=== PATIENT | female | born 1960 | race Caucasian/White ===

== ENCOUNTER → 2016-09-23 | Outpatient (CLI) | payer OTHER ==
--- NOTE | 2016-09-23 16:00 | XR ---
EXAMINATION TYPE: XR finger LT DATE OF EXAM: 09/23/2016 CLINICAL HISTORY: pain TECHNIQUE: 3 views of the left second digit are submitted. COMPARISON: None FINDINGS: No displaced fracture is seen with certainty. Joint spaces are well-preserved. Correlate for soft tissue injury. IMPRESSION: No acute displaced fracture or dislocation.
== END ==
LOC: RADXRMAIN 15:19
PROVIDERS: ATTEND Family Medicine
DX: S66.912A Strain of unspecified muscle, fascia and tendon at wrist and hand level, left hand, initial encounter (principal)

== ENCOUNTER → 2016-10-19 | Outpatient (CLI) | payer OTHER ==
--- NOTE | 2016-10-19 14:50 | MM ---
Reason for exam: clinical finding. Last mammogram was performed 1 year and 8 months ago. History: Benign US right guided VAD of the right breast, April 28, 2010. Took hormonal contraceptives for 4 years beginning at age 25. Physical Findings: Nurse did not find any significant physical abnormalities on exam. MG Diagnostic Mammo w CAD [facility] Bilateral CC and MLO view(s) were taken. Prior study comparison: February 12, 2015, bilateral MG 3d diag mammo w/cad H[facility]IS. April 13, 2010, CAD bilateral diagnostic mammogram. The breast tissue is heterogeneously dense. This may lower the sensitivity of mammography. There is no discrete abnormality including area of concern. No significant new findings when compared with previous films. These results were verbally communicated with the patient and result sheet given to the patient on 10/19/16. ASSESSMENT: Incomplete: need additional imaging evaluation, BI-RAD 0 RECOMMENDATION: Ultrasound of the right breast. Manage patient on a clinical basis.
--- NOTE | 2016-10-19 14:51 | USB ---
Reason for exam: clinical finding. History: Benign US right guided VAD of the right breast, April 28, 2010. Took hormonal contraceptives for 4 years beginning at age 25. US Breast RT Right breast ultrasound includes all four quadrants, the retroareolar region and axilla. Finding demonstrates area of pain negative. These results were verbally communicated with the patient and result sheet given to the patient on 10/19/16. ASSESSMENT: Negative, BI-RAD 1 RECOMMENDATION: Routine screening mammogram of both breasts in 1 year. Manage patient on a clinical basis.
== END | disposition home or self-care (01) ==
LOC: RADMAMWWP 13:38
PROVIDERS: ATTEND Family Medicine
DX: N64.4 Mastodynia (principal); R92.2 Inconclusive mammogram; R92.8 Other abnormal and inconclusive findings on diagnostic imaging of breast
CPT/HCPCS: 76641; G0204

== ENCOUNTER → 2017-04-28 | Outpatient (CLI) | payer OTHER ==
--- NOTE | 2017-04-28 13:50 | XR ---
EXAMINATION TYPE: XR knee complete LT DATE OF EXAM: 04/28/2017 CLINICAL HISTORY: Posterior left knee pain with no known injury TECHNIQUE: Three views of the left knee are obtained. COMPARISON: None. FINDINGS: There is no acute fracture/dislocation evident in left knee. Mild medial compartment joint space narrowing and tibial plateau sclerosis are noted. The overlying soft tissue appears unremarka ble. IMPRESSION: 1. No acute fracture or dislocation in the left knee. 2. Mild medial compartment arthrosis. MR could be performed for further evaluation of the ligaments, tendons, and menisci.
== END | disposition home or self-care (01) ==
LOC: RADXRMAIN 12:28
PROVIDERS: ATTEND Family Medicine
DX: M17.12 Unilateral primary osteoarthritis, left knee (principal)

== ENCOUNTER → 2017-05-01 | Outpatient (CLI) | payer OTHER ==
--- NOTE | 2017-05-02 07:41 | US ---
EXAMINATION TYPE: US venous doppler duplex LE LT DATE OF EXAM: 05/01/2017 6:10 PM COMPARISON: NONE CLINICAL HISTORY: M79.605 Left Leg Pain. Left leg pain SIDE PERFORMED: Left TECHNIQUE: The lower extremity deep venous system is examined utilizing real time linear array sonog ingrid with graded compression, doppler sonography and color-flow sonography. VESSELS IMAGED: External Iliac Vein (EIV) Common Femoral Vein Deep Femoral Vein Greater Saphenous Vein * Femoral Vein Popliteal Vein Small Saphenous Vein * Proximal Calf Veins (* superficial vessels) Grayscale, color doppler, spectral doppler imaging performed of the deep veins of the lower extremity . There is normal flow, compressibility, vascular waveforms. Left Leg: Negative for DVT IMPRESSION: No evidence of DVT left leg.
== END | disposition home or self-care (01) ==
LOC: RADUSMAIN 17:45
PROVIDERS: ATTEND Family Medicine
DX: M79.605 Pain in left leg (principal)

== ENCOUNTER → 2017-05-25 | Outpatient (CLI) | payer OTHER ==
--- NOTE | 2017-05-25 12:26 | MR ---
EXAMINATION TYPE: MR tib fib LT wo con DATE OF EXAM: 05/25/2017 COMPARISON: NONE HISTORY: Pain in left medial calf TECHNIQUE: Multiplanar, multisequence images of the left lower extremity were acquired per department protocol FINDINGS: There is no evidence of acute fracture or malalignment of the tibia or fibula. No evidence of bone ma rrow edema or cortical thickening. No periosteal reaction is seen. There is a very minimal amount of subcutaneous edema seen within the medial lateral distal lower extremity surrounding the distal diaph ysis of the tibia. Muscle volume and signal are all within normal limits. Popliteal flow void is maintained. Ankle morti se and knee joint are aligned. No evidence of stress fracture of the tibia. IMPRESSION: 1. No MR finding to correspond to the patient's pain. There is no evidence of stress fracture, muscul ar tear, or muscular edema. No bone marrow altering suspicious lesion. 2. Very mild amount of subcutaneous edema within the lateral and medial distal left lower extremity s tranding the distal tibial diaphysis.
== END | disposition home or self-care (01) ==
LOC: RADMRIMAIN 06:52
PROVIDERS: ATTEND Family Medicine
DX: R60.0 Localized edema (principal)

== ENCOUNTER → 2018-05-10 | Outpatient (CLI) | payer OTHER ==
--- NOTE | 2018-05-10 08:34 | CT ---
EXAMINATION TYPE: CT sinus wo con DATE OF EXAM: 05/10/2018 COMPARISON: NONE HISTORY: Chronic sinusitis CT DLP: 646 mGycm. Automated Exposure Control for Dose Reduction was Utilized. TECHNIQUE: CT scan of the sinuses is performed without contrast, axial images are obtained, coronal r eformatted images are also reviewed. FINDINGS: There is scant mucosal thickening within the bilateral maxillary sinuses. Right-sided nonoc clusive contra bullosa seen of the middle meatus. Ostiomeatal complexes are patent. There is a small left-sided nonocclusive Black cell measuring 5 mm. Mild right inferior nasal turbinate and middle na roland turbinate mucosal hypertrophy is seen. There is mild leftward nasal septal deviation and a small 2 mm leftward nasal septal spur. Ethmoid, sphenoid, and frontal sinuses remain well aerated. Visualiz ed portions of the anterior margins of the mastoid air cells are also well aerated. Incidentally noted dermal calcifications are seen. The orbits are symmetric and globes maintain a nor mal rounded morphology. Exam is optimized for evaluation of intracranial structures. IMPRESSION: 1. Scant mucosal thickening of the maxillary sinuses. Ostiomeatal complexes are patent. 2. Nonocclusive right middle nasal turbinate stoney bullosa. 3. Small left nonocclusive Black cell. 4. Mild right middle nasal turbinate and inferior nasal turbinate mucosal hypertrophy. 5. Mild leftward nasal septal deviation and small 2 mm leftward nasal septal spur.
--- NOTE | 2018-05-10 08:37 | CT ---
EXAMINATION TYPE: CT brain wo con DATE OF EXAM: 05/10/2018 COMPARISON: NONE HISTORY: Chronic sinusitis, right facial pain, sinus pressure, headaches. CT DLP: 1036 mGycm. Automated Exposure Control for Dose Reduction was Utilized. TECHNIQUE: CT scan of the head is performed without contrast. FINDINGS: There is no acute intracranial hemorrhage, mass effect, or midline shift identified. No suspicious extra-axial fluid collection is seen. The ventricles and sulci are symmetrically prominent compatible with mild age-related volume loss. The globes are intact. Inferior maxillary sinuses seen on the sinus CT of the same date are not visualized. The visualized portions of the paranasal sinuse s are well aerated on brain examination. Cerebellar tonsils are noted to be low-lying. Benign-appeari ng dermal calcifications are incidentally noted in the frontal region. Mastoid air cells are well aer ated. IMPRESSION: No acute intracranial process. Mild age-related volume loss.
== END | disposition home or self-care (01) ==
LOC: RADCTMAIN 07:42
PROVIDERS: ATTEND Ophthalmology
DX: J34.3 Hypertrophy of nasal turbinates (principal); J34.2 Deviated nasal septum; G31.9 Degenerative disease of nervous system, unspecified
CPT/HCPCS: 70450; 70486

== ENCOUNTER 2018-07-09 08:21 | Emergency (ER) | payer OTHER ==
[2018-07-09 08:28] VITALS: RESP 18
[2018-07-09] MEDS ORDERED: diphenhydrAMINE 50 MG/ML 1 ML VIAL IVP STA (08:43)
[2018-07-09] MEDS ORDERED: FAMOTIDINE 20 MG/2 ML VIAL IV STA (08:44)
--- NOTE | 2018-07-09 08:46 | ED ---
General Adult HPI - General Chief complaint: Nausea/Vomiting/Diarrhea Stated complaint: hives/vomiting Time Seen by Provider: 07/09/18 08:30 Source: patient Mode of arrival: ambulatory Limitations: no limitations - History of Present Illness Initial comments: Dictation was produced using [employer] dictation software. please excuse any gra mmatical, word or spelling errors. Chief Complaint: 57-year-old female with chief complaint of rash and nausea vomiting. History of Present Illness: She is a 57-year-old female. She was recently started on Bactrim for chronic sinusitis. 4 days ago patient noted that she's been having intermittent urticarial rash. At same time that her rash started she's been also having nausea and vomiting and poor by mouth tolerance. Patient states her symptoms have been intermittent. She also had a recent increase in her lisinopril hydrochlorothiazide. Patient states that the itching has been so bad that she is having difficulty sleeping at night. The ROS documented in this emergency department record has been reviewed and confirmed by me. Those systems with pertinent positive or negative responses have been documented in the HPI. All other systems are other negative and/or noncontributory. PHYSICAL EXAM: General Impression: Alert and oriented x3, not in acute distress HEENT: Normocephalic atraumatic, extra-ocular movements intact, pupils equal and reactive to light bilaterally, mucous membranes moist. Cardiovascular: Heart regular rate and rhythm, S1&S2 audible, no murmurs, rubs or gallops Chest: Lungs clear to auscultation bilaterally, no rhonchi, no wheeze, no rales Abdomen: Bowel sounds present, abdomen soft, non-tender, non-distended, no organomegaly Musculoskeletal: Pulses present and equal in all extremities, no peripheral edema Motor: no focal deficits noted Neurological: CN II-XII grossly intact, no focal motor or sensory deficits noted Skin: Urticarial rash to the upper extremities, neck and anterior chest Psych: Normal affect and mood ED course: 57-year-old female with ALLERGIC reaction. There is strong clinical suspicion that symptoms are secondary to Bactrim. Vital signs upon arrival shows heart rate of 105, rest of vital signs within acceptable limits. Patient given Benadryl and Pepcid. Laboratory evaluation obtained. Laboratory evaluation obtained showing no acute processes. Patient's symptoms are improved. Patient told to discontinue taking Bactrim. She is told to follow-up with ear nose and throat doctor. Patient was Zofran for some dizziness. Patient otherwise well-appearing at this time. Patient given prescription for Antivert when necessary dizziness. Otherwise well-appearing at this time tolerating by mouth. No concern for anaphylaxis at this time. Patient told to follow-up with their nose and throat doctor for outpatient management of chronic sinusitis which she is taking Bactrim for. - Related Data Home Medications Medication Instructions Recorded Confirmed Lisinopril-Hctz 20-25 mg 1 tab PO DAILY 07/09/18 07/09/18 [Zestoretic 20-25] Omeprazole 20 mg PO DAILY 07/09/18 07/09/18 Vitamin C/Biotin [Hair, Skin and 1 tab PO DAILY 07/09/18 07/09/18 Nails] Previous Rx's Medication Instructions Recorded Meclizine [Antivert] 25 mg PO BID PRN #12 tab 07/09/18 Allergies Allergy/AdvReac Type Severity Reaction Status Date / Time sulfamethoxazole Allergy Rash/Hives Verified 07/09/18 08:48 [From Bactrim] trimethoprim [From Bactrim] Allergy Rash/Hives Verified 07/09/18 08:48 Review of Systems ROS Statement: Those systems with pertinent positive or pertinent negative responses have been documented in the HPI. ROS Other: All systems not noted in ROS Statement are negative. Past Medical History Past Medical History: Hypertension History of Any Multi-Drug Resistant Organisms: None Reported Past Surgical History: Section Past Psychological History: No Psychological Hx Reported Smoking Status: Never smoker Past Alcohol Use History: None Reported Past Drug Use History: None Reported General Exam Limitations: no limitations Course Vital Signs 07/09/18 08:25 Temperature 97.4 F L Pulse Rate 105 H Respiratory 18 Rate Blood Pressure 131/88 O2 Sat by Pulse 99 Oximetry Medical Decision Making - Lab Data Result diagrams: 07/09/18 08:48 07/09/18 08:48 Lab Results 07/09/18 07/09/18 Range/Units 08:48 08:48 WBC 5.1 (3.8-10.6) k/uL RBC 4.89 (3.80-5.40) m/uL Hgb 14.9 (11.4-16.0) gm/dL Hct 42.7 (34.0-46.0) % MCV 87.5 (80.0-100.0) fL MCH 30.5 (25.0-35.0) pg MCHC 34.9 (31.0-37.0) g/dL RDW 13.5 (11.5-15.5) % Plt Count 342 (150-450) k/uL Neutrophils % 66 % Lymphocytes % 19 % Monocytes % 10 % Eosinophils % 1 % Basophils % 0 % Neutrophils # 3.4 (1.3-7.7) k/uL Lymphocytes # 1.0 (1.0-4.8) k/uL Monocytes # 0.5 (0-1.0) k/uL Eosinophils # 0.0 (0-0.7) k/uL Basophils # 0.0 (0-0.2) k/uL Sodium 138 (137-145) mmol/L Potassium 3.9 (3.5-5.1) mmol/L Chloride 102 (98-107) mmol/L Carbon Dioxide 23 (22-30) mmol/L Anion Gap 13 mmol/L BUN 14 (7-17) mg/dL Creatinine 0.70 (0.52-1.04) mg/dL Est GFR (CKD-EPI)AfAm >90 (>60 ml/min/1.73 sqM) Est GFR (CKD-EPI)NonAf >90 (>60 ml/min/1.73 sqM) Glucose 130 H (74-99) mg/dL Calcium 9.8 (8.4-10.2) mg/dL Disposition Clinical Impression: Allergic reaction Disposition: HOME SELF-CARE Instructions (If sedation given, give patient instructions): Urticaria (ED) Prescriptions: Meclizine [Antivert] 25 mg PO BID PRN #12 tab PRN Reason: dizziness Is patient prescribed a controlled substance at d/c from ED?: No Referrals: Rafat Eric DO [Primary Care Provider] - 1-2 days Time of Disposition: 09:51
[2018-07-09 09:03] LABS: Basophils % (A) 0 %; Eosinophils % (A) 1 %; HCT 42.7 % (34.0-46.0); HGB 14.9 gm/dL (11.4-16.0); Lymphocytes % (A) 19 %; MCH 30.5 pg (25.0-35.0); MCHC 34.9 g/dL (31.0-37.0); MCV 87.5 fL (80.0-100.0); Mean Platelet Volume 6.7; Monocytes # (A) 0.5 k/uL (0-1.0); Monocytes % (A) 10 %; Neutrophils # (A) 3.4 k/uL (1.3-7.7); Neutrophils % (A) 66 %; Platelet Count 342 k/uL (150-450); RBC 4.89 m/uL (3.80-5.40); RDW 13.5 % (11.5-15.5); WBC 5.1 k/uL (3.8-10.6)
[2018-07-09 09:04] LABS: Anion Gap 13 mmol/L; Blood Urea Nitrogen 14 mg/dL (7-17); Calcium 9.8 mg/dL (8.4-10.2); Carbon Dioxide 23 mmol/L (22-30); Chloride 102 mmol/L (98-107); Glucose 130 mg/dL (74-99); Potassium 3.9 mmol/L (3.5-5.1); Sodium 138 mmol/L (137-145)
[2018-07-09] MEDS ORDERED: ONDANSETRON 4 MG/2 ML VIAL IVP STA (09:06)
[2018-07-09] MEDS ORDERED: SODIUM CHLORIDE 0.9% 1,000 ML IV ONE (09:06)
[2018-07-09 10:10] VITALS: BP 128/82; PULSE 77; TEMP 98.2
== END 2018-07-09 10:10 | disposition home or self-care (01) ==
LOC: EC 08:21
DX: T78.40XA Allergy, unspecified, initial encounter (principal); I10 Essential (primary) hypertension; Z79.899 Other long term (current) drug therapy; Z88.1 Allergy status to other antibiotic agents; Z88.2 Allergy status to sulfonamides
CPT/HCPCS: 36415; 80048; 85025; 99284; 96374; 96375 ×2; 96361; J1200; J2405

== ENCOUNTER 2018-07-09 14:30 | Emergency (ER) | payer OTHER ==
[2018-07-09 14:36] VITALS: RESP 18; TEMP 98
[2018-07-09] MEDS ORDERED: diphenhydrAMINE 50 MG/ML 1 ML VIAL IVP STA (15:08)
[2018-07-09] MEDS ORDERED: FAMOTIDINE 20 MG/2 ML VIAL IV STA (15:08)
[2018-07-09] MEDS ORDERED: methylPREDNISolone SOD SUCCI 125 MG/2 ML VIAL IV STA (15:09)
--- NOTE | 2018-07-09 15:32 | ED ---
General Adult HPI - General Chief complaint: Allergic Reaction Stated complaint: Hives, Nauseated Time Seen by Provider: 07/09/18 14:37 Source: patient, RN notes reviewed, old records reviewed Mode of arrival: ambulatory Limitations: no limitations - History of Present Illness Initial comments: 57-year-old female patient past medical history of a central presents to ED with rash. Patient was previously seen for this problem at approximately 8:00 this morning. At that time patient was diagnosed with alikely causing her to drug reaction. Patient was previously on Bactrim approximately 4 days due to a sinus infection. Patient primary complaint today is hives on her back and forearms. Patient denies any facial swelling, sensation of throat closing, difficulty breathing. Patient denies any abdominal pain, or diarrhea. Pt has been experiencing some waxing and waning nausea and vomiting for the last 4 days. Patient states that she primarily wants her rash to be treated as an is pruritic and uncomfortable. Denies any other complaints. Systemic: Pt denies fatigue, myalgia, fever/chills. Pt denies weakness, night sweats, weight loss. Neuro: Pt denies headache, visual disturbances, syncope or pre-syncope. HEENT: Pt denies ocular discharge or irritation, otalgia, rhinorrhea, pharyngitis or notable lymphadenopathy. Cardiopulmonary: Pt denies chest pain, SOB, heart palpitations, dyspnea on exertion. Abdominal/GI: Pt denies abdominal pain, n/v/d. : Pt denies dysuria, burning w/ urination, frequency/urgency. Denies new onset urinary or bowel incontinence. MSK: Pt denies myalgia, loss of strength or function in extremities. Neuro: Pt denies new onset weakness, paresthesias. - Related Data Home Medications Medication Instructions Recorded Confirmed Lisinopril-Hctz 20-25 mg 1 tab PO DAILY 07/09/18 07/09/18 [Zestoretic 20-25] Omeprazole 20 mg PO DAILY 07/09/18 07/09/18 Vitamin C/Biotin [Hair, Skin and 1 tab PO DAILY 07/09/18 07/09/18 Nails] Previous Rx's Medication Instructions Recorded EPINEPHrine [Epipen 2-Joseph] 0.3 mg IM ONCE PRN #1 pack 07/09/18 Meclizine [Antivert] 25 mg PO BID PRN #12 tab 07/09/18 Ondansetron Odt [Zofran ODT] 4 mg PO Q8HR PRN #20 tab 07/09/18 diphenhydrAMINE [Benadryl] 1 - 2 tab PO Q6HR PRN #30 capsule 07/09/18 predniSONE 50 mg PO DAILY #4 tab 07/09/18 Allergies Allergy/AdvReac Type Severity Reaction Status Date / Time sulfamethoxazole Allergy Rash/Hives Verified 07/09/18 14:36 [From Bactrim] trimethoprim [From Bactrim] Allergy Rash/Hives Verified 07/09/18 14:36 Review of Systems ROS Statement: Those systems with pertinent positive or pertinent negative responses have been documented in the HPI. ROS Other: All systems not noted in ROS Statement are negative. Past Medical History Past Medical History: Hypertension History of Any Multi-Drug Resistant Organisms: None Reported Past Surgical History: Section Past Psychological History: No Psychological Hx Reported Smoking Status: Never smoker Past Alcohol Use History: None Reported Past Drug Use History: None Reported General Exam - General Exam Comments Initial Comments: Constitutional: NAD, AOX3, Pt has pleasant affect. HEENT: NC/AT, trachea midline, neck supple, no lymphadenopathy. Posterior pharynx non erythematous, without exudates. External ears appear normal, without discharge. Mucous membranes moist. Eyes PERRLA, EOM intact. There is no scleral icterus. No pallor noted. Cardiopulmonary: RRR, no murmurs, rubs or gallops, no JVD noted. Lungs CTAB in anterior and posterior camacho. No peripheral edema. Abdominal exam: Abdomen soft and non-distended. Abdomen non-tender to palpation in all 4 quadrants. Bowel sounds active in LLQ. No hepatosplenomegaly. No ecchymosis Neuro: CN II-XII grossly intact. No nuchal rigidity. MSK: No posterior calf tenderness bilaterally, homans sign negative bilaterally. Posterior tibialis and radial pulse +2 bilaterally. Sensation intact in upper and lower extremities. Full active ROM in upper and lower extremities, 5/5 stregnth. Derm: Hives noted on back as well as upper extremities bilaterally. No angioedema. Limitations: no limitations Course Vital Signs 07/09/18 14:34 Temperature 98.0 F Pulse Rate 86 Respiratory 18 Rate Blood Pressure 132/85 O2 Sat by Pulse 99 Oximetry Medical Decision Making - Medical Decision Making 57-year-old female patient past medical history of a central presents to ED with rash. Patient was previously seen for this problem at approximately 8:00 this morning. At that time patient was diagnosed with a-likely causing her to drug reaction. Patient was previously on Bactrim approximately 4 days due to a sinus infection. Patient primary complaint today is hives on her back and forearms. Patient denies any facial swelling, sensation of throat closing, difficulty breathing. Patient denies any abdominal pain, vomiting or diarrhea. Patient states that she primarily wants her rash to be treated as an is pruritic and uncomfortable. Denies any other complaints. Pt VSS, afebrile. Physical exam displayed: Hives noted on back as well as upper extremities bilaterally. No an gioedema. Patient lives. Steroids, Benadryl and ED. Hives improved. Patient developed some nausea and retching. Patient denies raising this for approximately 5 days waxing and waning. Patient was administered some Zofran. Patient discharged with prescription of steroids, Benadryl, Zofran. Patient also prescribed EpiPen to use in emergency for anaphylaxis. Patient will follow up with primary care Brown 2 days. Patient return to ER condition worsens in any way. Case discussed with Dr. Macdonald. Disposition Clinical Impression: Allergic reaction Disposition: HOME SELF-CARE Condition: Stable Instructions (If sedation given, give patient instructions): General Allergic Reaction (ED) Additional Instructions: Patient to adhere to previously discussed treatment plan and will take medication(s) as directed. Patient to follow up with PCP in 1-2 days. Patient to return to ED if symptoms do not improve. Please take medications as directed. Use Benadryl as needed for pruritus or rash. Take steroids as directed. Use EpiPen only in case of emergency anaphylaxis. Use Zofran as needed for nausea and vomiting. Prescriptions: diphenhydrAMINE [Benadryl] 1 - 2 tab PO Q6HR PRN #30 capsule PRN Reason: Allergic Reaction EPINEPHrine [Epipen 2-Joseph] 0.3 mg IM ONCE PRN #1 pack PRN Reason: Anaphylaxis predniSONE 50 mg PO DAILY #4 tab Ondansetron Odt [Zofran ODT] 4 mg PO Q8HR PRN #20 tab PRN Reason: Nausea Is patient prescribed a controlled substance at d/c from ED?: No Referrals: Rafat Eric DO [Primary Care Provider] - 1-2 days
[2018-07-09] MEDS ORDERED: ONDANSETRON 4 MG/2 ML VIAL IVP STA (15:33)
[2018-07-09 16:23] VITALS: BP 137/87; PULSE 70
== END 2018-07-09 16:30 | disposition home or self-care (01) ==
LOC: EC 14:30
DX: T78.40XA Allergy, unspecified, initial encounter (principal); I10 Essential (primary) hypertension; Z79.899 Other long term (current) drug therapy; Z88.1 Allergy status to other antibiotic agents; Z88.2 Allergy status to sulfonamides; Z53.8 Procedure and treatment not carried out for other reasons
CPT/HCPCS: 99283; 96374; 96375 ×2; J1200; J2930; J2405

== ENCOUNTER 2018-11-14 08:50 | Day surgery (SDC) | payer OTHER ==
[~2018-11-14 08:50] MED LIST: LIDOCAINE 1% 20 ML VIAL (10MG/ML) FOR IV START INTRADERMA PRN
[2018-11-14 09:10] VITALS: TEMP 97.2
[2018-11-14] MEDS: LACTATED RINGERS 1,000 ML IV SCH ×2 (09:14→09:28)
--- NOTE | 2018-11-14 09:14 | P.GSHP ---
History of Present Illness H&P Date: 11/14/18 CHIEF COMPLAINT: GERD HISTORY OF PRESENT ILLNESS: The patient is a 57-year-old female who presents reports gastroesophageal reflux disease. Upper endoscopy was offered for further evaluation and management. PAST MEDICAL HISTORY: Please see list. PAST SURGICAL HISTORY: Please see list. MEDICATIONS: Please see list. ALLERGIES: Please see list. SOCIAL HISTORY: No illicit drug use FAMILY HISTORY: No reports of Crohn disease or ulcerative colitis. REVIEW OF ORGAN SYSTEMS: CONSTITUTIONAL: No reports of fevers or chills. GI: Denies any blood in stools or constipation. PHYSICAL EXAM: VITAL SIGNS: Stable GENERAL: Well-developed and pleasant in no acute distress. HEENT: No scleral icterus. Extraocular movements grossly intact. Moist buccal mucosa. NECK: Supple without lymphadenopathy. CHEST: Unlabored respirations. Equal bilateral excursions. CARDIOVASCULAR: Regular rate and rhythm. Distal 2+ pulses. ABDOMEN: Soft, nondistended. MUSCULOSKELETAL: No clubbing, cyanosis, or edema. ASSESSMENT: 1. Gastroesophageal reflux disease PLAN: 1. Recommend proceeding with an upper endoscopy Past Medical History Past Medical History: GERD/Reflux, Hypertension Additional Past Medical History / Comment(s): CURRENT: CAN'T HOLD FOOD DOWN. History of Any Multi-Drug Resistant Organisms: None Reported Past Surgical History: Section Past Anesthesia/Blood Transfusion Reactions: Motion Sickness Past Psychological History: No Psychological Hx Reported Smoking Status: Never smoker Past Alcohol Use History: None Reported Past Drug Use History: None Reported Medications and Allergies Home Medications Medication Instructions Recorded Confirmed Type Lisinopril-Hctz 20-25 mg 1 tab PO QAM 07/09/18 11/14/18 History [Zestoretic 20-25] Omeprazole 20 mg PO DAILY 07/09/18 11/14/18 History Allergies Allergy/AdvReac Type Severity Reaction Status Date / Time sulfamethoxazole Allergy Rash/Hives Verified 11/13/18 08:49 [From Bactrim] trimethoprim [From Bactrim] Allergy Rash/Hives Verified 11/13/18 08:49 Surgical - Exam Vital Signs Temp Pulse Resp BP Pulse Ox 97.2 F L 74 16 121/73 94 L 11/14/18 09:07 11/14/18 09:07 11/14/18 09:07 11/14/18 09:07 11/14/18 09:07
[2018-11-14] MEDS ORDERED: PROPOFOL 10 MG/ML 20 ML VIAL IV ONE (09:29)
[2018-11-14] MEDS ORDERED: LIDOCAINE 1% INJ 10MG/ML (20 ML MDV) ONE (09:29)
--- NOTE | 2018-11-14 09:41 | P.PCN ---
Date of Procedure: 11/14/18 Description of Procedure: PREOPERATIVE DIAGNOSIS: Gastroesophageal reflux disease. POSTOPERATIVE DIAGNOSIS: Gastroesophageal reflux disease. Diaphragmatic hiatal hernia OPERATION: Esophagogastroduodenoscopy with biopsies along antrum. SURGEON: Alison Rosas MD ANESTHESIA: MAC. INDICATIONS: The patient is a 46-year-old female who presents with a history of reflux disease. Benefits and risks of the procedure were described. Informed consent was obtained. DESCRIPTION: The patient was brought into the endoscopy suite and laid in the left lateral decubitus position. An Olympus gastroscope was passed along the posterior oropharynx down to the distal esophagus where the squamocolumnar junction was encountered at 36 cm from the incisors. The stomach was entered and no bile reflux was found. Additional findings are listed below. Biopsies with cold forceps were obtained of the antrum. The first through third portion of the duodenum was examined and unremarkable. Retroflexion of the scope confirmed Hill grade 3 lower esophageal valve. The squamocolumnar junction demonstrated LA grade B erosive esophagitis. The stomach was desufflated. The patient tolerated the procedure well. FINDINGS: Squamocolumnar junction 36 cm from the incisors. Diaphragmatic hiatus at 40 cm. Hiatal hernia, 4 cm Hill grade 3 lower esophageal valve. LA grade B erosive esophagitis. No active duodenitis. Chronic gastritis with gastric polyps RECOMMENDATIONS: Upper endoscopy as needed. Plan - Discharge Summary Discharge Rx Participant: No New Discharge Prescriptions: No Action Omeprazole 20 mg PO DAILY Lisinopril-Hctz 20-25 mg [Zestoretic 20-25] 1 tab PO QAM Discharge Medication List Lisinopril-Hctz 20-25 mg [Zestoretic 20-25] 1 tab PO QAM 07/09/18 [History] Omeprazole 20 mg PO DAILY 07/09/18 [History]
--- NOTE | 2018-11-14 09:43 | P.PN ---
Progress Note - Text Progress Note Date: 11/14/18 Patient reports completing fecal test [place]d which was normal.
[2018-11-14 09:48] VITALS: BP 114/75; PULSE 72; RESP 18
== END 2018-11-14 10:10 | disposition home or self-care (01) ==
LOC: ORWHC2ENDO 08:50
PROVIDERS: ATTEND Surgery Plastic and Reconstructive Surgery
DX: K44.9 Diaphragmatic hernia without obstruction or gangrene (principal); K22.10 Ulcer of esophagus without bleeding; K29.50 Unspecified chronic gastritis without bleeding; K31.7 Polyp of stomach and duodenum; K21.9 Gastro-esophageal reflux disease without esophagitis; R10.9 Unspecified abdominal pain; I10 Essential (primary) hypertension; K92.89 Other specified diseases of the digestive system; Z79.899 Other long term (current) drug therapy; Z88.2 Allergy status to sulfonamides
CPT/HCPCS: 43239; 88305

== ENCOUNTER → 2019-04-13 | Outpatient (CLI) | payer BC ==
--- NOTE | 2019-04-13 10:02 | MR ---
EXAMINATION TYPE: MR brain wo/w con DATE OF EXAM: 04/13/2019 9:37 AM COMPARISON: Previous CT scan of the brain dated 05/10/2018. HISTORY: Headache TECHNIQUE: Multiplanar, multiecho imaging of the brain was obtained with and without intravenous adm inistration of 7.5 mL intravenous Gadavist. FINDINGS: Midline structures are unremarkable. There is a normal craniocervical junction. Echoplanar diffusion imaging shows no evidence of restricted diffusion. There are normal vascular flow voids. The orbits are unremarkable. There is no evidence of a CP angle mass lesion. There are scattered, punctate subcortical white matte r lesions in the frontal lobes bilaterally. These number approximately 5 in number. These are nonspec ific and may relate to small vessel disease, migraine headaches, hypertension, borderline is disease. There is no mass effect, midline shift or intracranial blood. Following intravenous administration of gadolinium, I do not see evidence of abnormal enhancement. IMPRESSION: 1. NO ACUTE INTRACRANIAL ABNORMALITY. 2. RARE, PUNCTATE SUBCORTICAL WHITE MATTER LESIONS WHICH ARE NONSPECIFIC. A DIFFERENTIAL DIAGNOSIS GIVEN ABOVE.
== END | disposition home or self-care (01) ==
LOC: RADMRIMAIN 08:40
PROVIDERS: ATTEND Family Medicine
DX: R90.82 White matter disease, unspecified (principal); R51 Headache
CPT/HCPCS: 70553; A9585

== ENCOUNTER 2019-07-01 10:25 | Observation (INO) | payer BC ==
[2019-07-01 11:45] LABS: HCT 40.5 % (34.0-46.0); HGB 14.5 gm/dL (11.4-16.0); MCH 31.1 pg (25.0-35.0); MCHC 35.8 g/dL (31.0-37.0); MCV 87.1 fL (80.0-100.0); Mean Platelet Volume 6.6; Platelet Count 338 k/uL (150-450); RBC 4.65 m/uL (3.80-5.40); RDW 11.9 % (11.5-15.5); WBC 6.5 k/uL (3.8-10.6)
--- NOTE | 2019-07-01 11:49 | XR ---
EXAMINATION TYPE: XR chest 2V DATE OF EXAM: 07/01/2019 COMPARISON: 09/10/2015 HISTORY: Chest pain TECHNIQUE: Frontal and lateral views of the chest are obtained. FINDINGS: There is no focal air space opacity, pleural effusion, or pneumothorax seen. The cardiac silhouette size is within normal limits and stable from the prior. The osseous structures are intac t. IMPRESSION: No acute cardiopulmonary process.
[2019-07-01 12:03] LABS: D-Dimer 0.32 mg/L FEU (<0.60); INR 0.9 (<1.2); Prothrombin Time 9.8 sec (9.0-12.0)
[2019-07-01 12:05] LABS: ALT 12 U/L (4-34); AST 19 U/L (14-36); African American GFR (CKD) >90 (>60 ml/min/1.73 sqM); Albumin 4.6 g/dL (3.5-5.0); Alkaline Phosphatase 77 U/L (38-126); Anion Gap 11 mmol/L; Blood Urea Nitrogen 13 mg/dL (7-17); Calcium 9.5 mg/dL (8.4-10.2); Carbon Dioxide 24 mmol/L (22-30); Chloride 96 mmol/L (98-107); Glucose 128 mg/dL (74-99); Magnesium 2.2 mg/dL (1.6-2.3); Non-African American GFR(CKD) >90 (>60 ml/min/1.73 sqM); Potassium 3.7 mmol/L (3.5-5.1); Sodium 131 mmol/L (137-145); Total Bilirubin 0.4 mg/dL (0.2-1.3); Total Protein 7.8 g/dL (6.3-8.2)
[2019-07-01 12:09] LABS: Eosinophils # (M) 0.07 k/uL (0-0.7); Lymphocytes # (M) 1.69 k/uL (1.0-4.8); Monocytes # (M) 0.59 k/uL (0-1.0); Neutrophils # (M) 4.16 k/uL (1.3-7.7); Neutrophils % (M) 64 %; Nucleated Red Blood Cells 0 /100 WBC (0-0); Total Cells Counted 100
--- NOTE | 2019-07-01 13:10 | ED ---
Chest Pain HPI - General Chief Complaint: Chest Pain Stated Complaint: chest pain/SOB Source: patient Mode of arrival: ambulatory Limitations: physical limitation - History of Present Illness Initial Comments: The patient is a 58-year-old female past medical history of hypertension who presents to the emergency room with reported chest pain. She states it's been intermittent for the past week. It is located over the left side of her chest with radiation to her left jaw and left arm. She describes it as a sharp shooting sensation. Denies any provocative factors. Does admit to mild shortness of breath. Does have a nonproductive cough. Also admits to bilateral ankle cramping. No calf pain or tingling. Denies history of DVT or PE. No pleuritic chest pain. No ripping or tearing sensation to her back. Denies any additional symptoms include fevers, chills, nausea or vomiting. There are no alleviating, precipitating or modifying factors - Related Data Home Medications Medication Instructions Recorded Confirmed Lisinopril-Hctz 20-25 mg 1 tab PO QAM 07/09/18 07/01/19 [Zestoretic 20-25] Omeprazole 20 mg PO DAILY 07/09/18 07/01/19 OXcarbazepine [Trileptal] 150 mg PO BID 07/01/19 07/01/19 Allergies Allergy/AdvReac Type Severity Reaction Status Date / Time sulfamethoxazole Allergy Rash/Hives Verified 07/01/19 13:26 [From Bactrim] trimethoprim [From Bactrim] Allergy Rash/Hives Verified 07/01/19 13:26 Review of Systems ROS Statement: Those systems with pertinent positive or pertinent negative responses have been documented in the HPI. ROS Other: All systems not noted in ROS Statement are negative. EKG Findings - EKG Comments: EKG Findings:: EKG demonstrates normal sinus rhythm with ventricular rate of 71. CT interval 142. QRS 78. QTC of 417. No acute ST segment elevations or depressions concerning for ischemic changes Past Medical History Past Medical History: GERD/Reflux, Hypertension Additional Past Medical History / Comment(s): neck pain History of Any Multi-Drug Resistant Organisms: None Reported Past Surgical History: Section Past Anesthesia/Blood Transfusion Reactions: Motion Sickness Past Psychological History: No Psychological Hx Reported Smoking Status: Never smoker Past Alcohol Use History: None Reported Past Drug Use History: Marijuana - Past Family History Father Family Medical History: Congestive Heart Failure (CHF), Coronary Artery Disease (CAD) Additional Family Medical History / Comment(s): R hip fracture Mother Family Medical History: Coronary Artery Disease (CAD), CVA/TIA, Diabetes Mellitus, Eye Disorder Additional Family Medical History / Comment(s): CABG, macular degeneration General Exam Limitations: physical limitation Course Vital Signs 07/01/19 07/01/19 07/01/19 10:37 11:04 13:45 Temperature 98.5 F 98.3 F Pulse Rate 72 73 72 Respiratory 18 18 12 Rate Blood Pressure 138/84 141/99 162/87 O2 Sat by Pulse 99 96 97 Oximetry 07/01/19 14:04 Temperature Pulse Rate 81 Respiratory 14 Rate Blood Pressure 129/85 O2 Sat by Pulse 92 L Oximetry Chest Pain MDM - MDM Upon arrival the patient's is placed into room 6. A thorough history and physical exam was performed. Peripheral IV was established. Laboratory studies were conducted. Sodium mildly low at 131. Glucose is 128. First troponin is negative. Chest x-ray demonstrates no acute cardiopulmonary process. I did discuss results with the patient. She was given an aspirin. I did recommend hospital admission order to trend her troponins and be evaluated by cardiology. The patient did agree to this. A call discuss the case with Dr. hannah who accepted admission. Patient was then transferred to floor in stable condition Disposition Clinical Impression: Chest pain Disposition: ADMITTED IP TO THIS HOSP Condition: Stable Is patient prescribed a controlled substance at d/c from ED?: No Decision to Admit Reason: Admit from EC Decision Date: 07/01/19 Decision Time: 13:10
[2019-07-01] MEDS ORDERED: NALOXONE 0.4 MG/ML 1 ML VIAL IV PRN (13:11)
[2019-07-01] MEDS ORDERED: ASPIRIN 81 MG PO STA (13:12)
--- NOTE | 2019-07-01 17:09 | P.HPIM ---
History of Present Illness H&P Date: 07/01/19 Chief Complaint: Chest pain History of presenting complaint: This is a very pleasant 58-year-old patient of Dr. Eric. Chronic stable medical conditions include GERD, hypertension, osteoarthritis, hiatal hernia, trigeminal neuralgia on the right side. Patient does not have any prior cardiac history. For the patient's been having chest pressure on and off. Sometimes w ith exertion. The pain often radiates to the left arm or the neck. Often feels a choking sensation. Patient became short of breath and clammy. Also some dizziness and lightheadedness. As his symptoms have been progressive she decided to come in. Admitted with a diagnosis of unstable angina. Initial troponin was negative. Review of systems: GEN.: None EYES: None HEENT: None NECK: None RESPIRATORY: As above CARDIOVASCULAR: As above GASTROINTESTINAL: GERD GENITOURINARY: None MUSCULOSKELETAL: Some joint pains LYMPHATICS: None HEMATOLOGICAL: None PSYCHIATRY: None NEUROLOGICAL: None Past medical history to include: GERD, hypertension, Brigette arthritis, hiatal hernia, right trigeminal neuralgia Social history: , does home care. Does not smoke or drink alcohol. Physical examination: VITAL SIGNS: 98.5, 72, 18, 138/84, 99% on room air GENERAL: BMI 33.3, propped up, not in distress. EYES: Pupils equal. Conjunctiva normal. HEENT: External appearance of nose and ears normal, oral cavity grossly normal. NECK: JVD not raised; masses not palpable. HEART: First and second heart sounds are normal; no edema. LUNGS: Respiratory rate normal; clear to auscultation. ABDOMEN: Soft, nontender, liver spleen not palpable, no masses palpable. PSYCH: Alert and oriented x3; mood and affect normal Musculoskeletal: Some evidence of early OA in the hands. NEUROLOGICAL: Cranial nerves grossly intact; no facial asymmetry, power and sensation grossly intact. LYMPHATICS: No lymph nodes palpable in the axilla and neck INVESTIGATIONS, reviewed in the clinical context: White count 6.5 hemoglobin 14.5 platelets 338 potassium 3.7 creatinine 0.59 Troponin I less than 0.012 EKG tracing personally reviewed by me-normal sinus rhythm film personally reviewed by me-lung camacho clear Assessment: -Anterior chest wall pain and noncardiac sounding presentation with symptoms coming on for progressive over a week, suspect unstable angina, with negative troponin -GERD -Essential hypertension -Primary osteoarthritis -Hiatal hernia -Right trigeminal neuralgia -Obesity BMI 33.3 Plan: Patient at rest is currently chest pain-free. Received aspirin. Home medications be resumed. Add beta ondina. Cardiology is consulted. Care was discussed with the patient. will at least need a stress test in the morning. Past Medical History Past Medical History: GERD/Reflux, Hypertension, Osteoarthritis (OA) Additional Past Medical History / Comment(s): Hiatal hernia, gastric polyp, R trigeminal nerve pain, sinusitis, deviated septum, allergies. History of Any Multi-Drug Resistant Organisms: None Reported Past Surgical History: Section, Uterine Ablation Additional Past Surgical History / Comment(s): EGD, hysteroscopy with myosure/cu rrettage. Past Anesthesia/Blood Transfusion Reactions: No Reported Reaction, Motion Sickness Past Psychological History: No Psychological Hx Reported Additional Psychological History / Comment(s): Pt resides with her spouse. She is independent. She works for [employer]. Smoking Status: Never smoker Past Alcohol Use History: None Reported Past Drug Use History: Marijuana Additional Drug Use History / Comment(s): Occasionally smokes marijuana - Past Family History Father Family Medical History: Congestive Heart Failure (CHF), Coronary Artery Disease (CAD) Additional Family Medical History / Comment(s): R hip fracture Mother Family Medical History: Coronary Artery Disease (CAD), CVA/TIA, Diabetes Susan litus, Eye Disorder Additional Family Medical History / Comment(s): CABG, macular degeneration Medications and Allergies Home Medications Medication Instructions Recorded Confirmed Type Lisinopril-Hctz 20-25 mg 1 tab PO QAM 07/09/18 07/01/19 History [Zestoretic 20-25] Omeprazole 20 mg PO DAILY 07/09/18 07/01/19 History OXcarbazepine [Trileptal] 150 mg PO BID 07/01/19 07/01/19 History Allergies Allergy/AdvReac Type Severity Reaction Status Date / Time sulfamethoxazole Allergy Rash/Hives Verified 07/01/19 13:26 [From Bactrim] trimethoprim [From Bactrim] Allergy Rash/Hives Verified 07/01/19 13:26 Physical Exam Vitals: Vital Signs Temp Pulse Pulse Resp BP BP Pulse Ox 07/01/19 15:21 98.7 F 71 16 132/77 97 07/01/19 14:04 81 14 129/85 92 L 07/01/19 13:45 98.3 F 72 12 162/87 97 07/01/19 11:04 73 18 141/99 96 07/01/19 10:37 98.5 F 72 18 138/84 99 Intake and Output 07/01/19 07/01/19 07/01/19 06:59 14:59 22:59 Other: # Voids 1 Weight 90.718 kg Results CBC & Chem 7: 07/01/19 11:18 07/01/19 11:18 Labs: Abnormal Lab Results - Last 24 Hours (Table) 07/01/19 Range/Units 11:18 Sodium 131 L (137-145) mmol/L Chloride 96 L (98-107) mmol/L Glucose 128 H (74-99) mg/dL Thrombosis Risk Factor Assmnt - Choose All That Apply Any of the Below Risk Factors Present?: Yes Each Factor Represents 1 point: Age 41-60 years, Obesity (BMI >25) Other Risk Factors: No Other congenital or acquired thrombophilia - If yes, enter type in comment: No Thrombosis Risk Factor Assessment Total Risk Factor Score: 2 Thrombosis Risk Factor Assessment Level: Low Risk
[2019-07-01] MEDS: METOPROLOL TARTRATE 25 MG TAB PO SCH (21:03)
[2019-07-01] MEDS: OXcarbazepine 150 MG TAB PO SCH (21:04)
[2019-07-02] MEDS ORDERED: PANTOPRAZOLE 40 MG TABLET PO SCH (07:30)
[2019-07-02 07:55] VITALS: BP 138/85; PULSE 84; RESP 20; TEMP 98.7
[2019-07-02] MEDS ORDERED: LISINOPRIL-HCTZ 20-25 MG 1 EACH TAB PO SCH (09:00)
[2019-07-02] MEDS ORDERED: ASPIRIN 81 MG PO SCH (09:00)
[2019-07-02 09:23] LABS: Cholesterol 194 mg/dL (<200); HDL Cholesterol 45 mg/dL (40-60); LDL Cholesterol,Calculated 122 mg/dL (0-99); Triglycerides 136 mg/dL (<150)
--- NOTE | 2019-07-02 09:36 | ECHOF ---
Referral Reason:chest pain MEASUREMENTS -------- HEIGHT: 165.1 cm WEIGHT: 78.9 kg BP: 138/85 RVIDd: 2.8 cm (< 3.3) IVSd: 1.2 cm (0.6 - 1.1) LVIDd: 3.6 cm (3.9 - 5.3) LVPWd: 1.1 cm (0.6 - 1.1) IVSs: 1.7 cm LVIDs: 2.3 cm LVPWs: 1.5 cm LA Diam: 2.6 cm (2.7 - 3.8) LAESV Index (A-L): 24.58 ml/m Ao Diam: 3.0 cm (2.0 - 3.7) AV Cusp: 1.8 cm (1.5 - 2.6) MV EXCURSION: 13.015 mm (> 18.000) MV EF SLOPE: 53 mm/s (70 - 150) EPSS: 1.3 cm MV E John: 0.80 m/s MV DecT: 280 ms MV A John: 0.81 m/s MV E/A Ratio: 0.99 RAP: 5.00 mmHg RVSP: 24.03 mmHg TAPSE: 23.04 mm FINDINGS -------- Sinus rhythm. This was a technically adequate study. The left ventricular size is normal. There is borderline concentric left ventricular hypertrophy. Overall left ventricular systolic function is normal with, an EF between 55 - 60 %. The right ventricle is mildly enlarged. Normal LA size by volume 22+/-6 ml/m2. The right atrial size is normal. Interatrial and interventricular septum intact. There is mild aortic valve sclerosis. Trace to mild aortic regurgitation. The mitral valve is normal. There is trace to mild mitral regurgitation. Trace tricuspid regurgitation present. Right ventricular systolic pressure is normal at < 35 mmHg. Trace/mild (physiologic) pulmonic regurgitation. The aortic root size is normal. Normal inferior vena cava with normal inspiratory collapse consistent with estimated right atrial pre ssure of 5 mmHg. There is no pericardial effusion. CONCLUSIONS -------- 1. There is borderline concentric left ventricular hypertrophy. 2. Overall left ventricular systolic function is normal with, an EF between 55 - 60 %. 3. The right ventricle is mildly enlarged. 4. Normal LA size by volume 22+/-6 ml/m2. 5. There is mild aortic valve sclerosis. 6. Trace to mild aortic regurgitation. 7. There is trace to mild mitral regurgitation. 8. Trace tricuspid regurgitation present. 9. Right ventricular systolic pressure is normal at < 35 mmHg. 10. Trace/mild (physiologic) pulmonic regurgitation. PRINCIPAL TECHNICAL SPECIALIST: Aspen Talbot RDCS
[2019-07-02] MEDS: METOPROLOL TARTRATE 25 MG TAB PO SCH (09:46)
[2019-07-02] MEDS: OXcarbazepine 150 MG TAB PO SCH (09:46)
--- NOTE | 2019-07-02 12:08 | P.CRDCN ---
History of Present Illness Consult date: 07/02/19 Consult reason: chest pain Chief complaint: Chest pain History of present illness: This is a pleasant 58-year-old female with history of hypertension, family history of premature coronary artery disease, she is a nonsmoker, nondiabetic, unsure of her cholesterol, she did have a recent bout of sinusitis and has a history of trigeminal neuralgia. Patient presented to the hospital with symptoms of chest tightness which has been occurring off and on for the past 3-4 days. She does state intermittently when she gets a discomfort that she feels some numbness and tingling in her left arm. She denies any associated symptoms of shortness of breath nausea or diaphoresis. Her troponins were negative 3. EKG shows a normal sinus rhythm with no acute changes. CBC and electrolytes normal, normal kidney function. Patient was given aspirin in the emergency room, she states that since that time she has had no subsequent symptoms. Blood pressure 138/80 with a heart rate in the 70s to 80s, afebrile. Past Medical History Past Medical History: GERD/Reflux, Hypertension, Osteoarthritis (OA) Additional Past Medical History / Comment(s): Hiatal hernia, gastric polyp, R trigeminal nerve pain, sinusitis, deviated septum, allergies. History of Any Multi-Drug Resistant Organisms: None Reported Past Surgical History: Section, Uterine Ablation Additional Past Surgical History / Comment(s): EGD, hysteroscopy with myosure/currettage. Past Anesthesia/Blood Transfusion Reactions: No Reported Reaction, Motion Sickness Past Psychological History: No Psychological Hx Reported Additional Psychological History / Comment(s): Pt resides with her spouse. She is independent. She works for [employer]. Smoking Status: Never smoker Past Alcohol Use History: None Reported Past Drug Use History: Marijuana Additional Drug Use History / Comment(s): Occasionally smokes marijuana - Past Family History Father Family Medical History: Congestive Heart Failure (CHF), Coronary Artery Disease (CAD) Additional Family Medical History / Comment(s): R hip fracture Mother Family Medical History: Coronary Artery Disease (CAD), CVA/TIA, Diabetes Mellitus, Eye Disorder Additional Family Medical History / Comment(s): CABG, macular degeneration Medications and Allergies Home Medications Medication Instructions Recorded Confirmed Type Lisinopril-Hctz 20-25 mg 1 tab PO QAM 07/09/18 07/01/19 History [Zestoretic 20-25] Omeprazole 20 mg PO DAILY 07/09/18 07/01/19 History OXcarbazepine [Trileptal] 150 mg PO BID 07/01/19 07/01/19 History Aspirin 81 mg PO DAILY chew 07/02/19 Rx Metoprolol Tartrate [Lopressor] 25 mg PO BID #60 tab 07/02/19 Rx Nitroglycerin Sl Tabs [Nitrostat] 0.4 mg SUBLINGUAL Q5M PRN #25 tab 07/02/19 Rx Allergies Allergy/AdvReac Type Severity Reaction Status Date / Time sulfamethoxazole Allergy Rash/Hives Verified 07/01/19 13:26 [From Bactrim] trimethoprim [From Bactrim] Allergy Rash/Hives Verified 07/01/19 13:26 Physical Exam Vitals: Vital Signs Temp Pulse Pulse Resp BP BP Pulse Ox 07/02/19 07:52 98.7 F 84 20 138/85 98 07/02/19 04:00 98.4 F 66 16 122/76 96 07/02/19 00:00 98.2 F 68 18 130/78 94 L 07/01/19 20:00 98.4 F 74 18 124/72 96 07/01/19 15:21 98.7 F 71 16 132/77 97 07/01/19 14:04 81 14 129/85 92 L 07/01/19 13:45 98.3 F 72 12 162/87 97 Intake and Output 07/01/19 07/02/19 07/02/19 22:59 06:59 14:59 Intake Total 222 Balance 222 Intake: Oral 222 Other: Voiding Method Toilet # Voids 1 1 2 Weight 79.1 kg PHYSICAL EXAMINATION: GENERAL: 88-year-old female in no acute distress at the time of my examination HEENT: Head is atraumatic, normocephalic. Pupils equal, round. Sclera anicteric. Conjunctiva are clear. Mucous membranes of the mouth are moist. Neck is supple. There is no elevated jugular venous pressure.No carotid bruit is heard. HEART EXAMINATION: Heart S1, S2 normal. No murmur or gallop heard. CHEST EXAMINATION: Lungs are clear to auscultation and precussion. No chest wall tenderness is noted on palpation or with deep breathing. ABDOMEN: Soft, nontender. Bowel sounds are heard. No organomegaly noted. EXTREMITIES: 2+ peripheral pulses with no evidence of peripheral edema and no calf tenderness noted. NEUROLOGIC patient is awake, alert and oriented X3. . Results 07/01/19 11:18 07/01/19 11:18 Cardiac Enzymes 07/01/19 07/01/19 07/01/19 Range/Units 11:18 11:18 17:37 AST 19 (14-36) U/L Troponin I <0.012 <0.012 (0.000-0.034) ng/mL 07/01/19 Range/Units 22:20 AST (14-36) U/L Troponin I <0.012 (0.000-0.034) ng/mL Coagulation 07/01/19 Range/Units 11:18 PT 9.8 (9.0-12.0) sec APTT 24.0 (22.0-30.0) sec Lipids 07/01/19 Range/Units 11:18 Triglycerides 136 (<150) mg/dL Cholesterol 194 (<200) mg/dL HDL Cholesterol 45 (40-60) mg/dL CBC 07/01/19 Range/Units 11:18 WBC 6.5 (3.8-10.6) k/uL RBC 4.65 (3.80-5.40) m/uL Hgb 14.5 (11.4-16.0) gm/dL Hct 40.5 (34.0-46.0) % Plt Count 338 (150-450) k/uL Comprehensive Metabolic Panel 07/01/19 Range/Units 11:18 Sodium 131 L (137-145) mmol/L Potassium 3.7 (3.5-5.1) mmol/L Chloride 96 L (98-107) mmol/L Carbon Dioxide 24 (22-30) mmol/L BUN 13 (7-17) mg/dL Creatinine 0.59 (0.52-1.04) mg/dL Glucose 128 H (74-99) mg/dL Calcium 9.5 (8.4-10.2) mg/dL AST 19 (14-36) U/L ALT 12 (4-34) U/L Alkaline Phosphatase 77 (38-126) U/L Total Protein 7.8 (6.3-8.2) g/dL Albumin 4.6 (3.5-5.0) g/dL Current Medications Generic Name Dose Route Start Last Admin Trade Name Freq PRN Reason Stop Dose Admin Aspirin 81 mg 07/02/19 09:00 07/02/19 09:46 Aspirin PO 81 mg DAILY CRISSY Administration Lisinopril/HCTZ 1 each 07/02/19 09:00 07/02/19 09:46 Zestoretic 20-25 PO 1 each QAM CRISSY Administration Metoprolol Tartrate 25 mg 07/01/19 21:00 07/02/19 09:46 Lopressor PO 25 mg BID CRISSY Administration Naloxone HCl 0.2 mg 07/01/19 13:11 Narcan IV Q2M PRN Opioid Reversal Oxcarbazepine 150 mg 07/01/19 21:00 07/02/19 09:46 Trileptal PO 150 mg BID CRISSY Administration Pantoprazole Sodium 40 mg 07/02/19 07:30 07/02/19 06:14 Protonix PO Not Given AC-[id number] CRISSY Intake and Output 07/01/19 07/02/19 07/02/19 22:59 06:59 14:59 Intake Total 222 Balance 222 Intake: Oral 222 Other: Voiding Method Toilet # Voids 1 1 2 Weight 79.1 kg 07/01/19 11:18 07/01/19 11:18 EKG Interpretations (text) EKG shows normal sinus rhythm with no acute changes. Assessment and Plan Plan: Assessment and plan #1 chest pain, atypical for acute coronary syndrome. Troponins negative 3. EKG shows a normal sinus rhythm with no acute changes. #2 hypertension #3 family history of premature coronary artery disease #4 trigeminal neuralgia Plan We will obtain an echocardiogram with Doppler study. Patient was advised by Dr. Emily Lee to undergo stress testing, she refused to have inpatient stress testing performed at this time but states that she would agree to having it down the road as an outpatient. She will stay in the hospital to have the echo but then prefers to be discharged home. We will make her a follow-up appointment in the office post discharge. DNP note has been reviewed, I agree with a documented findings and plan of care. Patient was seen and examined.
--- NOTE | 2019-07-03 11:44 | P.DS ---
Providers Date of admission: 07/01/19 13:11 Expected date of discharge: 07/02/19 Attending physician: Arik Gore Consults: 07/01/19 13:11 Consult Physician Urgent Consulting Provider: [facility] Consult Reason/Comments: acute chest pain Do you want consulting provider notified?: Yes Primary care physician: Rafat Eric [facility] Course: Chief Complaint: Chest pain History of presenting complaint: This is a very pleasant 58-year-old patient of Dr. Eric. Chronic stable medical conditions include GERD, hypertension, osteoarthritis, hiatal hernia, trigeminal neuralgia on the right side. Patient does not have any prior cardiac history. For the patient's been having chest pressure on and off. Sometimes with exertion. The pain often radiates to the left arm or the neck. Often feels a choking sensation. Patient became short of breath and clammy. Also some dizziness and lightheadedness. As his symptoms have been progressive she decided to come in. Admitted with a diagnosis of unstable angina. Initial troponin was negative. Patient was seen by cardiology. Offered stress test. Patient refuses. Starting beta ondina. No further chest pains. Could not return to ER or call 911 if chest pain comes again. Care was discussed at length with the patient. Importance of stress test. Patient insisting on going home. Discussion and discharge planning more than 35 minutes Consultation: Dr. MONIQUE Lee from cardiology Physical examination: VITAL SIGNS: 98.7, 84, 20, 138/85, 98% on room air GENERAL: Sitting up, comfortable EYES: Pupils equal. Conjunctiva normal. HEENT: External appearance of nose and ears normal, oral cavity grossly normal. NECK: JVD not raised; masses not palpable. HEART: First and second heart sounds are normal; no edema. LUNGS: Respiratory rate normal; clear to auscultation. ABDOMEN: Soft, nontender, liver spleen not palpable, no masses palpable. PSYCH: Alert and oriented x3; mood and affect normal Musculoskeletal: Some evidence of early OA in the hands. INVESTIGATIONS, reviewed in the clinical context: White count 6.5 hemoglobin 14.5 platelets 338 potassium 3.7 creatinine 0.59 Troponin I less than 0.012 EKG tracing personally reviewed by me-normal sinus rhythm film personally reviewed by me-lung camacho clear 2-D echo-a 55-60%. No wall motion abnormality. Assessment: -Anterior chest wall pain , suspect unstable angina, with negative troponin -GERD -Essential hypertension -Primary osteoarthritis -Hiatal hernia -Right trigeminal neuralgia -Obesity BMI 33.3 Disposition: Home Patient Condition at Discharge: Stable Plan - Discharge Summary Discharge Rx Participant: No New Discharge Prescriptions: New Aspirin 81 mg PO DAILY chew Metoprolol Tartrate [Lopressor] 25 mg PO BID #60 tab Nitroglycerin Sl Tabs [Nitrostat] 0.4 mg SUBLINGUAL Q5M PRN #25 tab PRN Reason: Angina Continue Omeprazole 20 mg PO DAILY Lisinopril-Hctz 20-25 mg [Zestoretic 20-25] 1 tab PO QAM OXcarbazepine [Trileptal] 150 mg PO BID Discharge Medication List Lisinopril-Hctz 20-25 mg [Zestoretic 20-25] 1 tab PO QAM 07/09/18 [History] Omeprazole 20 mg PO DAILY 07/09/18 [History] OXcarbazepine [Trileptal] 150 mg PO BID 07/01/19 [History] Aspirin 81 mg PO DAILY chew 07/02/19 [Rx] Metoprolol Tartrate [Lopressor] 25 mg PO BID #60 tab 07/02/19 [Rx] Nitroglycerin Sl Tabs [Nitrostat] 0.4 mg SUBLINGUAL Q5M PRN #25 tab 07/02/19 [Rx] Follow up Appointment(s)/Referral(s): Jinny Lee MD [STAFF PHYSICIAN] - 07/16/19 10:15 am (Monday) Rafat Eric DO [Primary Care Provider] - 07/03/19 11:15 am (Monday -telephone appointment. Please call at scheduled time) Patient Instructions/Handouts: Chest Pain (DC) Discharge Disposition: HOME SELF-CARE
== END 2019-07-02 12:27 | disposition home or self-care (01) ==
LOC: EC 10:25 → 3SCARD 13:11
PROVIDERS: ADMIT Hospitalist; ATTEND Hospitalist
DX: R07.89 Other chest pain (principal); E66.9 Obesity, unspecified; G50.0 Trigeminal neuralgia; I10 Essential (primary) hypertension; R25.2 Cramp and spasm; K21.9 Gastro-esophageal reflux disease without esophagitis; K44.9 Diaphragmatic hernia without obstruction or gangrene; M19.91 Primary osteoarthritis, unspecified site; Z68.33 Body mass index [BMI] 33.0-33.9, adult; Z79.82 Long term (current) use of aspirin; Z79.899 Other long term (current) drug therapy; Z82.49 Family history of ischemic heart disease and other diseases of the circulatory system; Z83.3 Family history of diabetes mellitus; Z82.3 Family history of stroke; Z83.518 Family history of other specified eye disorder; Z88.2 Allergy status to sulfonamides; M54.2 Cervicalgia
CPT/HCPCS: 99285; 36415; 93005; 93306; 85379; 80061; 80053; 83735; 84484; 85025; 85610; 85730; 71046; G0378 ×2

== ENCOUNTER → 2022-03-16 | Outpatient (CLI) | payer BC, OTHER ==
--- NOTE | 2022-03-18 09:28 | CA ---
Exercise Stress Test Report Name: Lana Rivas Exam Date: 03/16/2022 09:00 Exam Location: [place] Stress Ht (in): 65 Wt (lb): 180 BSA: 1.89 Ordering Phys: Rafat Ayala DO Referring Phys: FLY AYALA,, Technologist: Aspen Talbot RDCS Age: 61 Gender: F : 1960 Procedure CPT: Indications: R07.89 chest pain ICD-10 Codes: Patient History: cholesterol, fam hx Medications: LISINOPRIL, METFORMIN, OMEPERAZOLE, RUVASTATIN Meds past 24 hrs: Pretest Chest Pain: STRESS TEST Valerio Protocol Exercise Duration (min:sec): 06:[address] Depressions (mm): Angina Score: Munoz Score: Resting HR (bpm): 78 Peak HR (bpm): 139 Resting BP (mmHg): 125 / 77 Peak BP (mmHg): 180 / 91 MPHR: 159 Target HR: 135 % MPHR: 87 METS: 7.3 Total Dose: Peak Dose: Atropine: Double Product: 26516 BP Response: Stress Termination: Reached target heart rate Stress Symptoms: NO SYMPTOMS Stress Summary: ECG ANALYSIS Resting ECG: Stress ECG: CONCLUSIONS Excellent exercise tolerance Normal EKG in response to exercise Dr. Bam Killian MD (Electronically Signed) Final Date: 18 March 2022 09:27
== END | disposition home or self-care (01) ==
LOC: RADNMMAIN 08:41
PROVIDERS: ATTEND Family Medicine
DX: R07.89 Other chest pain (principal)
CPT/HCPCS: 93017

== ENCOUNTER 2022-10-01 19:03 | Observation (INO) | payer BC ==
[2022-10-01] MEDS ORDERED: NITROGLYCERIN OINT 1 INCH/GM PACKET TOPICAL STA (19:15)
[2022-10-01] MEDS ORDERED: ASPIRIN 81 MG PO STA (19:15)
--- NOTE | 2022-10-01 19:17 | ED ---
General Adult HPI - General Chief complaint: Chest Pain Stated complaint: chest pain Time Seen by Provider: 10/01/22 19:10 Source: patient, RN notes reviewed Mode of arrival: ambulatory Limitations: no limitations - History of Present Illness Initial comments: Patient is a pleasant 61-year-old female presenting to the emergency department with concerns with chest pain. Onset of symptoms was a couple weeks ago. Symptoms do worsen with exertion. Discomfort feels like pressure. Patient has associated dyspnea and nausea. Patient also gets lightheaded. Patient has had some mild headaches. - Related Data Home Medications Medication Instructions Recorded Confirmed Lisinopril-Hctz 20-25 mg 1 tab PO QAM 07/09/18 07/01/19 [Zestoretic 20-25] Omeprazole 20 mg PO DAILY 07/09/18 07/01/19 OXcarbazepine [Trileptal] 150 mg PO BID 07/01/19 07/01/19 Previous Rx's Medication Instructions Recorded Aspirin 81 mg PO DAILY chew 07/02/19 Metoprolol Tartrate [Lopressor] 25 mg PO BID #60 tab 07/02/19 Nitroglycerin Sl Tabs [Nitrostat] 0.4 mg SUBLINGUAL Q5M PRN #25 tab 07/02/19 Allergies Allergy/AdvReac Type Severity Reaction Status Date / Time sulfamethoxazole Allergy Rash/Hives Verified 10/01/22 19:09 [From Bactrim] trimethoprim [From Bactrim] Allergy Rash/Hives Verified 10/01/22 19:09 Review of Systems ROS Statement: Those systems with pertinent positive or pertinent negative responses have been documented in the HPI. ROS Other: All systems not noted in ROS Statement are negative. Constitutional: Denies: fever Eyes: Denies: eye pain ENT: Denies: ear pain Respiratory: Reports: as per HPI, dyspnea. Denies: cough Cardiovascular: Reports: as per HPI, chest pain Endocrine: Reports: fatigue Gastrointestinal: Reports: nausea Genitourinary: Denies: dysuria Musculoskeletal: Denies: back pain Skin: Denies: rash Neurological: Reports: headache. Denies: weakness, confusion Past Medical History Past Medical History: GERD/Reflux, Hypertension Additional Past Medical History / Comment(s): neck pain History of Any Multi-Drug Resistant Organisms: None Reported Past Surgical History: Section Additional Past Surgical History / Comment(s): EGD, hysteroscopy with myosure/currettage. Past Anesthesia/Blood Transfusion Reactions: Motion Sickness Past Psychological History: No Psychological Hx Reported Past Alcohol Use History: None Reported Past Drug Use History: Marijuana - Past Family History Father Family Medical History: Congestive Heart Failure (CHF), Coronary Artery Disease (CAD) Additional Family Medical History / Comment(s): R hip fracture Mother Family Medical History: Coronary Artery Disease (CAD), CVA/TIA, Diabetes Mellitus, Eye Disorder Additional Family Medical History / Comment(s): CABG, macular degeneration General Exam Limitations: no limitations General appearance: alert, in no apparent distress Head exam: Present: normocephalic Eye exam: Present: normal appearance Neck exam: Present: normal inspection Respiratory exam: Present: normal lung sounds bilaterally Cardiovascular Exam: Present: regular rate, normal rhythm Expanded Peripheral pulses: 2+: Radial (R), Radial (L), Posterior Tibialis (R), Posterior Tibialis (L) GI/Abdominal exam: Present: soft. Absent: tenderness Extremities exam: Present: normal inspection. Absent: pedal edema, calf tenderness Neurological exam: Present: alert, oriented X3, CN II-XII intact. Absent: motor sensory deficit Psychiatric exam: Present: normal affect, normal mood Skin exam: Present: normal color Course Vital Signs 10/01/22 19:06 Temperature 99.2 F Pulse Rate 78 Respiratory 16 Rate Blood Pressure 140/87 O2 Sat by Pulse 97 Oximetry EKG Findings - EKG Results: EKG: interpreted by ERMD, sinus rhythm, normal axis, normal QRS, normal ST/T Medical Decision Making - Medical Decision Making Was pt. sent in by a medical professional or institution (, PA, [employer], urgent care, hospital, or assisted...) When possible be specific @ -No Did you speak to anyone other than the patient for history (EMS, parent, family, police, friend...)? What history was obtained from this source @ - is present and helps confirm patient's history. He does add the patient has a history of chronic headaches and patient agrees this is similar. Did you review nursing and triage notes (agree or disagree)? Why? @ -I reviewed and agree with nursing and triage notes Were old charts reviewed (outside hosp., previous admission, EMS record, old EKG, old radiological studies, urgent care reports/EKG's, assisted records)? Report findings @ -No old charts were reviewed Differential Diagnosis (chest pain, altered mental status, abdominal pain women, abdominal pain men, vaginal bleeding, weakness, fever, dyspnea, syncope, h eadache, dizziness, GI bleed, back pain, seizure, CVA, palpatations, mental health, musculoskeletal)? @ -Differential Chest Pain: Stable Angina, Unstable Angina, STEMI, NSTEMI Aortic Dissection, Pneumothorax, Musculoskeletal, Esophageal Spasm GERD, Cholecystitis, Pancreatitis, Zoster, this is not meant to be an all-inclusive list. EKG interpreted by me (3pts min.). @ -As above X-rays interpreted by me (1pt min.). @ -Chest x-ray shows no acute process CT interpreted by me (1pt min.). @ -None done U/S interpreted by me (1pt. min.). @ -None done What testing was considered but not performed or refused? (CT, X-rays, U/S, labs)? Why? @ -None What meds were considered but not given or refused? Why? @ -None Did you discuss the management of the patient with other professionals (professionals i.e. DrMynor, PA, [employer], lab, RT, psych nurse, sexual assault social worker, run boat operator, teacher, disbursing officer, case sealer)? Give summary @ -Case was discussed with Dr. cash, who will admit For Dr. Eric Was smoking cessation discussed for >3mins.? @ -No Was critical care preformed (if so, how long)? @ -No Were there social determinants of health that impacted care today? How? (Homelessness, low income, unemployed, alcoholism, drug addiction, transportation, low edu. Level, literacy, decrease access to med. care, retirement, rehab)? @ -No Was there de-escalation of care discussed even if they declined (Discuss DNR or withdrawal of care, Hospice)? DNR status @ -No What co-morbidities impacted this encounter? (DM, HTN, Smoking, COPD, CAD, Cance r, CVA, ARF, Chemo, Hep., AIDS, mental health diagnosis, sleep apnea, morbid obesity)? @ -None Was patient admitted / discharged? Hospital course, mention meds given and route, prescriptions, significant lab abnormalities, going to OR and other pertinent info. @ -Patient reevaluated. Chest discomfort is improved with Nitropaste. Patient and family updated on results and plan. Undiagnosed new problem with uncertain prognosis? @ -No Drug Therapy requiring intensive monitoring for toxicity (Heparin, Nitro, Insulin, Cardizem)? @ -No Were any procedures done? @ -No Diagnosis/symptom? @ -Chest pain Acute, or Chronic, or Acute on Chronic? @ -Acute Uncomplicated (without systemic symptoms) or Complicated (systemic symptoms)? @ -default Side effects of treatment? @ -No Exacerbation, Progression, or Severe Exacerbation? @ -No Poses a threat to life or bodily function? How? (Chest pain, [place], [place], pneumonia, PE, COPD, DKA, ARF, appy, cholecystitis, CVA, Diverticulitis, Homicidal, Suicidal, threat to staff... and all critical care pts) @ -No - Lab Data Result diagrams: 10/01/22 19:29 Lab Results 10/01/22 10/01/22 10/01/22 Range/Units 19:29 19:29 19:29 WBC 7.6 (3.8-10.6) k/uL RBC 4.14 (3.80-5.40) m/uL Hgb 13.1 (11.4-16.0) gm/dL Hct 38.0 (34.0-46.0) % MCV 91.9 (80.0-100.0) fL MCH 31.6 (25.0-35.0) pg MCHC 34.4 (31.0-37.0) g/dL RDW 12.2 (11.5-15.5) % Plt Count 264 (150-450) k/uL MPV 6.9 Neutrophils % 59 % Lymphocytes % 26 % Monocytes % 11 % Eosinophils % 1 % Basophils % 0 % Neutrophils # 4.5 (1.3-7.7) k/uL Lymphocytes # 2.0 (1.0-4.8) k/uL Monocytes # 0.8 (0-1.0) k/uL Eosinophils # 0.1 (0-0.7) k/uL Basophils # 0.0 (0-0.2) k/uL PT 10.4 (9.0-12.0) sec INR 1.0 (<1.2) APTT 23.4 (22.0-30.0) sec D-Dimer 0.22 (<0.60) mg/L FEU Troponin I <0.012 (0.000-0.034) ng/mL NT-Pro-B Natriuret Pep pg/mL 10/01/22 Range/Units 19:29 WBC (3.8-10.6) k/uL RBC (3.80-5.40) m/uL Hgb (11.4-16.0) gm/dL Hct (34.0-46.0) % MCV (80.0-100.0) fL MCH (25.0-35.0) pg MCHC (31.0-37.0) g/dL RDW (11.5-15.5) % Plt Count (150-450) k/uL MPV Neutrophils % % Lymphocytes % % Monocytes % % Eosinophils % % Basophils % % Neutrophils # (1.3-7.7) k/uL Lymphocytes # (1.0-4.8) k/uL Monocytes # (0-1.0) k/uL Eosinophils # (0-0.7) k/uL Basophils # (0-0.2) k/uL PT (9.0-12.0) sec INR (<1.2) APTT (22.0-30.0) sec D-Dimer (<0.60) mg/L FEU Troponin I (0.000-0.034) ng/mL NT-Pro-B Natriuret Pep 47 pg/mL Disposition Clinical Impression: Chest pain Disposition: ADMITTED IP TO THIS HOSP Is patient prescribed a controlled substance at d/c from ED?: No Referrals: Rafat Eric DO [Primary Care Provider] - 1-2 days Time of Disposition: 20:42
[2022-10-01 19:55] LABS: Basophils % (A) 0 %; Eosinophils # (A) 0.1 k/uL (0-0.7); Eosinophils % (A) 1 %; HGB 13.1 gm/dL (11.4-16.0); Lymphocytes % (A) 26 %; MCH 31.6 pg (25.0-35.0); MCHC 34.4 g/dL (31.0-37.0); MCV 91.9 fL (80.0-100.0); Mean Platelet Volume 6.9; Monocytes # (A) 0.8 k/uL (0-1.0); Monocytes % (A) 11 %; Neutrophils # (A) 4.5 k/uL (1.3-7.7); Neutrophils % (A) 59 %; Platelet Count 264 k/uL (150-450); RBC 4.14 m/uL (3.80-5.40); RDW 12.2 % (11.5-15.5); WBC 7.6 k/uL (3.8-10.6)
[2022-10-01 20:23] LABS: Partial Thromboplastin Time 23.4 sec (22.0-30.0); Prothrombin Time 10.4 sec (9.0-12.0)
--- NOTE | 2022-10-01 20:42 | XR ---
EXAMINATION TYPE: XR chest 2V DATE OF EXAM: 10/01/2022 8:14 PM COMPARISON: Chest radiographs from 07/01/2019 TECHNIQUE: XR chest 2V Frontal and lateral views of the chest. CLINICAL INDICATION:Female, 61 years old with history of Chest Pain; FINDINGS: Lungs/Pleura: There is no evidence of pleural effusion, focal consolidation, or pneumothorax. Pulmonary vascularity: Unremarkable. Heart/mediastinum: Cardiomediastinal silhouette is unremarkable. Musculoskeletal: No acute osseous pathology. IMPRESSION: No acute cardiopulmonary disease/process.
[2022-10-01] MEDS ORDERED: NITROGLYCERIN SL TABS 0.4 MG TAB SUBLINGUAL PRN (20:43)
[2022-10-02] MEDS: NITROGLYCERIN OINT 1 INCH/GM PACKET TOPICAL SCH ×2 (01:09→05:57)
[2022-10-02 07:29] VITALS: BP 132/73; PULSE 64; RESP 14; TEMP 98
--- NOTE | 2022-10-02 08:08 | P.HPIM ---
History of Present Illness H&P Date: 10/01/22 Chief Complaint: Chest pain 61-year-old female, history of hypertension and gastroesophageal reflux disease, presenting to the emergency department with concerns with chest pain. Onset of symptoms was a couple weeks ago. Symptoms do worsen with exertion. Discomfort feels like pressure. Patient has associated dyspnea and nausea. Patient also gets lightheaded. Patient has had some mild headaches. At the time of evaluation patient is chest pain-free Blood work completed in ED reveals a WBC of 7.6, hemoglobin of 13.1 and platelet count of 264, troponin of less than 0.012, BNP of 47 EKG reveals normal sinus rhythm without any acute ST or T-wave changes Chest x-ray does not reveal any acute cardiopulmonary process Review of Systems REVIEW OF SYSTEMS: CONSTITUTIONAL: No fever, no malaise, no fatigue. HEENT: No recent visual problems or hearing problems. Denied any sore throat. CARDIOVASCULAR: No chest pain, orthopnea, PND, no palpitations, no syncope. PULMONARY: No shortness of breath, no cough, no hemoptysis. GASTROINTESTINAL: No diarrhea, no nausea, no vomiting, no abdominal pain. NEUROLOGICAL: No headaches, no weakness, no numbness. HEMATOLOGICAL: Denies any bleeding or petechiae. GENITOURINARY: Denies any burning micturition, frequency, or urgency. MUSCULOSKELETAL/RHEUMATOLOGICAL: Denies any joint pain, swelling, or any muscle pain. ENDOCRINE: Denies any polyuria or polydipsia. The rest of the 14-point review of systems is negative. Past Medical History Past Medical History: GERD/Reflux, Hypertension Additional Past Medical History / Comment(s): neck pain History of Any Multi-Drug Resistant Organisms: None Reported Past Surgical History: Section Additional Past Surgical History / Comment(s): EGD, hysteroscopy with myos ure/currettage. Past Anesthesia/Blood Transfusion Reactions: Motion Sickness Past Psychological History: No Psychological Hx Reported Additional Psychological History / Comment(s): Pt resides with her spouse. She is independent. She works for [employer]. Smoking Status: Never smoker Past Alcohol Use History: None Reported Past Drug Use History: Marijuana Additional Drug Use History / Comment(s): Occasionally smokes marijuana - Past Family History Father Family Medical History: Congestive Heart Failure (CHF), Coronary Artery Disease (CAD) Additional Family Medical History / Comment(s): R hip fracture Mother Family Medical History: Coronary Artery Disease (CAD), CVA/TIA, Diabetes Mellitus, Eye Disorder Additional Family Medical History / Comment(s): CABG, macular degeneration Medications and Allergies Home Medications Medication Instructions Recorded Confirmed Type Atorvastatin [Lipitor] 20 mg PO HS 10/01/22 10/01/22 History Lisinopril-Hctz 10-12.5 mg 1 tab PO DAILY 10/01/22 10/01/22 History [Zestoretic 10-12.5] Magnesium(Unknown Dose) 1 tab PO DAILY 10/01/22 10/01/22 History Metoprolol Succinate (ER) [Toprol 25 mg PO DAILY 10/01/22 10/01/22 History Xl] Omeprazole [PriLOSEC] 10 mg PO DAILY 10/01/22 10/01/22 History Vitamin B-12(Unknown Dose) 1 tab PO DAILY 10/01/22 10/01/22 History Allergies Allergy/AdvReac Type Severity Reaction Status Date / Time Penicillins Allergy Rash/Hives Verified 10/01/22 20:56 sulfamethoxazole Allergy Rash/Hives Verified 10/01/22 20:56 [From Bactrim] trimethoprim [From Bactrim] Allergy Rash/Hives Verified 10/01/22 20:56 Physical Exam Vitals: Vital Signs Temp Pulse Pulse Resp BP BP Pulse Ox 10/01/22 22:35 98.0 F 59 L 12 151/82 98 10/01/22 20:30 63 18 129/80 97 10/01/22 19:06 99.2 F 78 16 140/87 97 Intake and Output 10/01/22 10/01/22 10/02/22 14:59 22:59 06:59 Other: Weight 74.843 kg PHYSICAL EXAMINATION: GENERAL: The patient is alert and oriented x3, not in any acute distress. Well developed, well nourished. HEENT: Pupils are round and equally reacting to light. EOMI. No scleral icterus. No conjunctival pallor. Normocephalic, atraumatic. No pharyngeal erythema. No thyromegaly. CARDIOVASCULAR: S1 and S2 present. No murmurs, rubs, or gallops. PULMONARY: Chest is clear to auscultation, no wheezing or crackles. ABDOMEN: Soft, nontender, nondistended, normoactive bowel sounds. No palpable organomegaly. MUSCULOSKELETAL: No joint swelling or deformity. EXTREMITIES: No cyanosis, clubbing, or pedal edema. NEUROLOGICAL: Gross neurological examination did not reveal any focal deficits. SKIN: No rashes. Results CBC & Chem 7: 10/01/22 19:29 Thrombosis Risk Factor Assmnt - Choose All That Apply Any of the Below Risk Factors Present?: Yes Each Factor Represents 1 point: Obesity (BMI >25) Other Risk Factors: Yes Each Risk Factor Represents 2 Points: Age 61-74 years Other congenital or acquired thrombophilia - If yes, enter type in comment: No Thrombosis Risk Factor Assessment Total Risk Factor Score: 3 Thrombosis Risk Factor Assessment Level: Moderate Risk Assessment and Plan Assessment: 1. Chest pain; rule out acute coronary syndrome - EKG reveals normal sinus rhythm without any ST or T-wave changes; patient was given Nitropaste in ED which improved the pain - We will admit to monitor EKG and trend troponin; recommend 2-D echo - Patient has been placed on aspirin, Lipitor, Toprol and nitroglycerin - Consult cardiology for further recommendations 2. Hypertension; continue with home dose of Toprol-XL 25 mg daily 3. Hyperlipidemia; Lipitor 20 mg by mouth daily at bedtime 4. Gastroesophageal reflux disease; continue home PPI therapy 5. Hypomagnesemia; continue with oral supplement DVT prophylaxis; SCDs CODE STATUS; full code
[2022-10-02] MEDS ORDERED: MAGNESIUM PO SCH (09:00)
[2022-10-02] MEDS ORDERED: LISINOPRIL-HCTZ 10-12.5 MG 1 EACH TAB PO SCH (09:00)
[2022-10-02] MEDS ORDERED: ASPIRIN 325 MG TAB PO SCH (09:00)
[2022-10-02] MEDS ORDERED: PANTOPRAZOLE 40 MG TABLET PO SCH (09:00)
[2022-10-02] MEDS ORDERED: METOPROLOL SUCCINATE (ER) 25 MG TAB.ER.24H PO SCH (09:00)
--- NOTE | 2022-10-02 09:37 | P.CRDCN ---
History of Present Illness Consult date: 10/02/22 Chief complaint: Chest pain History of present illness: The patient is a 61-year-old female patient with a past medical history significant for hypertension as well as significant family history presented to the hospital with chest discomfort. The patient describes discomfort in the middle of the chest as well as upper abdomen the discomfort as a pressure on the chest was no radiation and no sensitive symptoms. No shortness of breath and no dizziness or lightheadedness and no feeling of heart racing or fluttering and no presyncope or syncope. She underwent further cardiac workup including an EKG showing sinus mechanism was no significant ST or T-wave abnormalities and also she underwent cardiac enzymes came in to be unremarkable. The patient stated that she has been chest pain-free since she was admitted to the hospital. The chest x-ray showed no acute abnormalities. No history of CAD. The patient underwent a stress test in February 2021 that came in to be unremarkable with excellent exercise tolerance. Please note that the troponin also came in to be unremarkable during this admission. I advised the patient to undergo an exercise stress test but patient would like to go home and have it done as an outpatient because she has worked tomorrow. I am going to get the patient up and around and if she is asymptomatic she potentially can be discharged home and has been seen as an outpatient for a stress sestamibi done as an outpatient The examination is remarkable for stable vital signs with a regular and clear breathing sounds bilaterally and no lower extremities edema. She does have soft nontender abdomen as well Assessment Atypical chest discomfort Hypertension Plan Acute coronary event was ruled out Stress sestamibi performed to rule out severe CAD. The patient would like to have it done as an outpatient Past Medical History Past Medical History: GERD/Reflux, Hypertension Additional Past Medical History / Comment(s): neck pain History of Any Multi-Drug Resistant Organisms: None Reported Past Surgical History: Section Additional Past Surgical History / Comment(s): EGD, hysteroscopy with myosure/currettage. Past Anesthesia/Blood Transfusion Reactions: Motion Sickness Past Psychological History: No Psychological Hx Reported Additional Psychological History / Comment(s): Pt resides with her spouse. She is independent. She works for [employer]. Smoking Status: Never smoker Past Alcohol Use History: None Reported Past Drug Use History: Marijuana Additional Drug Use History / Comment(s): Occasionally smokes marijuana - Past Family History Father Family Medical History: Congestive Heart Failure (CHF), Coronary Artery Disease (CAD) Additional Family Medical History / Comment(s): R hip fracture Mother Family Medical History: Coronary Artery Disease (CAD), CVA/TIA, Diabetes Mellitus, Eye Disorder Additional Family Medical History / Comment(s): CABG, macular degeneration Medications and Allergies Home Medications Medication Instructions Recorded Confirmed Type Atorvastatin [Lipitor] 20 mg PO HS 10/01/22 10/01/22 History Lisinopril-Hctz 10-12.5 mg 1 tab PO DAILY 10/01/22 10/01/22 History [Zestoretic 10-12.5] Magnesium(Unknown Dose) 1 tab PO DAILY 10/01/22 10/01/22 History Metoprolol Succinate (ER) [Toprol 25 mg PO DAILY 10/01/22 10/01/22 History Xl] Omeprazole [PriLOSEC] 10 mg PO DAILY 10/01/22 10/01/22 History Vitamin B-12(Unknown Dose) 1 tab PO DAILY 10/01/22 10/01/22 History Allergies Allergy/AdvReac Type Severity Reaction Status Date / Time Penicillins Allergy Rash/Hives Verified 10/01/22 20:56 sulfamethoxazole Allergy Rash/Hives Verified 10/01/22 20:56 [From Bactrim] trimethoprim [From Bactrim] Allergy Rash/Hives Verified 10/01/22 20:56 Physical Exam Vitals: Vital Signs Temp Pulse Pulse Resp BP BP Pulse Ox 10/02/22 07:00 98.0 F 64 14 132/73 96 10/02/22 01:48 98.6 F 63 16 125/72 98 10/02/22 01:16 59 L 12 10/01/22 22:35 98.0 F 59 L 12 151/82 98 10/01/22 20:30 63 18 129/80 97 10/01/22 19:06 99.2 F 78 16 140/87 97 Intake and Output 10/01/22 10/02/22 10/02/22 22:59 06:59 14:59 Other: Voiding Method Toilet Weight 74.843 kg Results 10/01/22 19:29 Cardiac Enzymes 10/01/22 10/01/22 10/02/22 Range/Units 19:29 22:55 01:35 Troponin I <0.012 <0.012 <0.012 (0.000-0.034) ng/mL Coagulation 10/01/22 Range/Units 19:29 PT 10.4 (9.0-12.0) sec APTT 23.4 (22.0-30.0) sec CBC 10/01/22 Range/Units 19:29 WBC 7.6 (3.8-10.6) k/uL RBC 4.14 (3.80-5.40) m/uL Hgb 13.1 (11.4-16.0) gm/dL Hct 38.0 (34.0-46.0) % Plt Count 264 (150-450) k/uL Current Medications Generic Name Dose Route Start Last Admin Trade Name Freq PRN Reason Stop Dose Admin Aspirin 325 mg 10/02/22 09:00 10/02/22 08:57 Aspirin 325 Mg Tab PO 325 mg DAILY CRISSY Administration Atorvastatin Calcium 20 mg 10/02/22 21:00 Atorvastatin 20 Mg Tab PO HS [facility] Lisinopril/HCTZ 1 each 10/02/22 09:00 10/02/22 08:57 Lisinopril-Hctz 10-12.5 Mg 1 Each Tab PO 1 each DAILY CRISSY Administration Metoprolol Succinate 25 mg 10/02/22 09:00 10/02/22 08:57 Metoprolol Succinate (Er) 25 Mg Tab.Er.24h PO 25 mg DAILY CRISSY Administration Nitroglycerin 0.4 mg 10/01/22 20:43 Nitroglycerin Sl Tabs 0.4 Mg Tab SUBLINGUAL Q5M PRN Chest Pain Nitroglycerin 1 inch 10/02/22 00:00 10/02/22 05:57 Nitroglycerin Oint 1 Inch/Gm Packet TOPICAL Not Given Q6HR [facility] Pantoprazole Sodium 40 mg 10/02/22 09:00 10/02/22 08:58 Pantoprazole 40 Mg Tablet PO 40 mg DAILY [facility] Administration Intake and Output 10/01/22 10/02/22 10/02/22 22:59 06:59 14:59 Other: Voiding Method Toilet Weight 74.843 kg 10/01/22 19:29
[2022-10-02 13:43] LABS: Blood Urea Nitrogen 10.5 mg/dL (9.0-27.0); Calcium 9.1 mg/dL (8.7-10.3); Carbon Dioxide 23.8 mmol/L (21.6-31.8); Chloride 106 mmol/L (96-109); Chol/HDL Ratio 2.34 Ratio; Glucose 109 mg/dL (70-110); LDL Cholesterol,Calculated 37.1 mg/dL (0.0-131.0); Potassium 3.6 mmol/L (3.5-5.5); Sodium 142 mmol/L (135-145); VLDL Calculation 15.64 mg/dL (5.00-40.00)
[2022-10-02 14:03] LABS: Basophils # (A) 0.05 X 10*3/uL (0.00-0.10); Basophils % (A) 0.7 %; Eosinophils # (A) 0.15 X 10*3/uL (0.04-0.35); Eosinophils % (A) 2.1 %; HCT 36.7 % (37.2-46.3); HGB 12.9 d/dL (12.0-15.0); Lymphocytes # (A) 1.65 X 10*3/uL (0.90-5.00); Lymphocytes % (A) 22.7 %; MCH 32.3 pg (27.0-32.0); MCHC 35.1 d/dL (32.0-37.0); MCV 91.8 FL (80.0-97.0); Mean Platelet Volume 9.2 FL (9.5-12.2); Monocytes # (A) 0.49 X 10*3/uL (0.20-1.00); Monocytes % (A) 6.7 %; NRBC Per 100 WBC 0 X 10*3/uL (0.00-0.01); Neutrophils % (A) 67.5 %; Platelet Count 239 X 10*3/uL (140-440); RDW 11.9 % (11.5-14.5); WBC 7.26 X 10*3/uL (4.50-10.00)
[2022-10-02] MEDS ORDERED: ATORVASTATIN 20 MG TAB PO SCH (21:00)
== END 2022-10-02 13:31 | disposition home or self-care (01) ==
LOC: EC 19:03 → 6NMEDSUR 20:44
PROVIDERS: ADMIT Internal Medicine; ATTEND Internal Medicine
DX: R07.89 Other chest pain (principal); E78.5 Hyperlipidemia, unspecified; E83.42 Hypomagnesemia; K21.9 Gastro-esophageal reflux disease without esophagitis; I10 Essential (primary) hypertension; F12.90 Cannabis use, unspecified, uncomplicated; Z79.899 Other long term (current) drug therapy; Z79.82 Long term (current) use of aspirin; Z88.1 Allergy status to other antibiotic agents; Z88.2 Allergy status to sulfonamides; Z82.49 Family history of ischemic heart disease and other diseases of the circulatory system; Z83.3 Family history of diabetes mellitus; Z88.0 Allergy status to penicillin
CPT/HCPCS: 99285; 36415; 93005; 85379; 83880; 80061; 80048; 84484 ×2; 85025 ×2; 85610; 85730; 71046; G0378 ×2

== ENCOUNTER → 2023-05-24 | Outpatient (CLI) | payer BC ==
--- NOTE | 2023-05-24 10:13 | CA ---
Transthoracic Echo Report Name: Lana Rivas Age: 62 Gender: F : 1960 Exam Date: 05/24/2023 08:43 Exam Location: [facility] Ht (in): 65 Wt (lb): 160 Ordering Physician: Rafat Eric DO Attending/Referring Phys: Claudio Casanova MD ([id number]) Resource Economist Evelia Man RDCS Procedure CPT: Indications: R42 dizziness and giddiness Cardiac Hx: Technical Quality: Fair Contrast 1: Total Dose (mL): Contrast 2: Total Dose (mL): MEASUREMENTS (Male / Female) Normal Values 2D ECHO LV Diastolic Diameter PLAX 3.2 cm 4.2 - 5.9 / 3.9 - 5.3 cm IVS Diastolic Thickness 1.4 cm 0.6 - 1.0 / 0.6 - 0.9 cm LVPW Diastolic Thickness 1.3 cm 0.6 - 1.0 / 0.6 - 0.9 cm LV Relative Wall Thickness 0.9 RV Internal Dim ED PLAX 2.9 cm LA Volume 36.2 cm??? 18 - 58 / 22 - 52 cm??? LA Volume Index 19.7 cm???/m??? 16 - 28 cm???/m??? M-MODE Aortic Root Diameter MM 3.3 cm LA Systolic Diameter MM 3.4 cm LA Ao Ratio MM 1.0 AV Cusp Separation MM 1.7 cm DOPPLER AV Peak Velocity 170.3 cm/s AV Peak Gradient 11.6 mmHg AV Mean Velocity 112.1 cm/s AV Mean Gradient 5.7 mmHg AV Velocity Time Integral 37.2 cm AI Peak Velocity 370.2 cm/s AI Peak Gradient 54.8 mmHg AI Pressure Half Time 761.9 ms LVOT Peak Velocity 104.3 cm/s LVOT Peak Gradient 4.4 mmHg LVOT Velocity Time Integral 22.6 cm Mitral E Point Velocity 75.6 cm/s Mitral A Point Velocity 78.8 cm/s Mitral E to A Ratio 1.0 MV Deceleration Time 300.0 ms MV E' Velocity 6.9 cm/s Mitral E to MV E' Ratio 10.9 TR Peak Velocity 225.8 cm/s TR Peak Gradient 20.4 mmHg Right Ventricular Systolic Press 30.4 mmHg FINDINGS Left Ventricle Moderately increased left ventricular wall thickness. Left ventricular cavity size normal. Normal left ventricular systolic function with no obvious regional wall motion abnormalities. Left ventricular ejection fraction is estimated at 55-60 %. Right Ventricle Normal right ventricular size and function. Right ventricular systolic pressure within normal limits. Right Atrium Normal right atrial size. Left Atrium Normal left atrial size. Mitral Valve Structurally normal mitral valve. No mitral stenosis. Trace mitral regurgitation. Aortic Valve Trileaflet aortic valve. No aortic stenosis. Diffuse thickening (sclerosis) of the aortic valve cusps without reduced excursion. Mild aortic regurgitation. Tricuspid Valve Structurally normal tricuspid valve. Mild tricuspid regurgitation. Pulmonic Valve Structurally normal pulmonic valve. Trace pulmonic regurgitation. Pericardium No pericardial effusion. Aorta Normal size aortic root and proximal ascending aorta. CONCLUSIONS Left ventricular systolic function is normal There is aortic sclerosis without any stenosis Mild aortic regurgitation Previewed by: Dr. Valente Golden MD (Electronically Signed) Final Date: 24 May 2023 10:13
== END | disposition home or self-care (01) ==
LOC: RADECHMAIN 08:18
PROVIDERS: ATTEND Family Medicine
DX: I70.0 Atherosclerosis of aorta (principal); I35.1 Nonrheumatic aortic (valve) insufficiency
CPT/HCPCS: 93306

== ENCOUNTER → 2024-06-25 | Outpatient (CLI) | payer BC ==
--- NOTE | 2024-06-25 12:52 | XR ---
EXAMINATION TYPE: XR chest 2V DATE OF EXAM: 06/25/2024 12:40 PM COMPARISON: 10/01/2022. CLINICAL INDICATION: Female, 63 years old with history of R07.89 CHEST PAIN; [facility] TECHNIQUE: XR chest 2V Frontal and lateral views of the chest. FINDINGS: Lungs/Pleura: There is no evidence of pleural effusion, focal consolidation, or pneumothorax. Pulmonary vascularity: Unremarkable. Heart/mediastinum: Cardiomediastinal silhouette is unremarkable. Musculoskeletal: No acute osseous pathology. IMPRESSION: No acute cardiopulmonary disease/process. [facility], , 06/25/2024 12:49 PM
== END | disposition home or self-care (01) ==
LOC: RADXRMAIN 10:37
PROVIDERS: ATTEND Family Medicine
DX: R07.89 Other chest pain (principal)
CPT/HCPCS: 71046

== ENCOUNTER → 2024-06-27 | Outpatient (CLI) | payer BC ==
--- NOTE | 2024-06-28 07:36 | MM ---
Reason for Exam: Screening (asymptomatic). Last mammogram was performed 7 year(s) and 9 month(s) ago. Patient History: Menarche at age 13. First Full-Term at age 25. Hormonal Contraceptives for 4 years from age 25 until age 29. 04/28/2010, Benign Core Biopsy on the right side. Risk Values: Swapna 5 year model risk: 2.1%. NCI Lifetime model risk: 8.7%. Prior Study Comparison: 04/13/2010 Bilateral Diagnostic Mammogram, [facility]. 02/12/2015 Bilateral Diagnostic Mammogram, [facility]. 10/19/2016 Bilateral Diagnostic Mammogram, [facility]. Tissue Density: The breasts are heterogeneously dense, which may obscure small masses. Findings: Analyzed By CAD. Asymmetric density upper outer left breast 7.7 cm from the nipple. Additional views are recommended. Postbiopsy changes right breast. No suspicious microcalcifications. Overall Assessment: Incomplete: need additional imaging evaluation, BI-RAD 0 Management: Diagnostic Mammogram of the left breast. . Patient should continue monthly self-breast exams. A clinical breast exam by your physician is recommended on an annual basis. This exam should not preclude additional follow-up of suspicious palpable abnormalities. Note on Swapna scores and lifetime risk: 1. A Swapna score greater than 3% is considered moderate risk. If this is the case, consider specialist referral to assess eligibility for a risk reducing agent. 2. If overall lifetime risk for the development of breast cancer is 20% or higher, the patient may qualify for future screening with alternating mammogram and breast MRI. [facility], , 06/28/2024 7:32 AM. Electronically signed and approved by: Asif Cormier M.D. Radiologis
== END | disposition home or self-care (01) ==
LOC: RADMAMWWP 15:24
PROVIDERS: ATTEND Family Medicine
DX: Z12.31 Encounter for screening mammogram for malignant neoplasm of breast (principal); R92.333 Mammographic heterogeneous density, bilateral breasts; Z92.0 Personal history of contraception
CPT/HCPCS: 77063; 77067

== ENCOUNTER → 2024-07-05 | Outpatient (CLI) | payer BC ==
--- NOTE | 2024-07-05 10:38 | MM ---
Reason for Exam: Additional evaluation requested from abnormal screening. Last screening mammogram was performed less than 1 month ago. Patient History: Menarche at age 13. First Full-Term at age 25. Hormonal Contraceptives for 4 years from age 25 until age 29. 04/28/2010, Benign Core Biopsy on the right side. Risk Values: Swapna 5 year model risk: 2.1%. NCI Lifetime model risk: 8.7%. Prior Study Comparison: 02/12/2015 Bilateral Diagnostic Mammogram, [facility]. 10/19/2016 Bilateral Diagnostic Mammogram, [facility]. 06/27/2024 Bilateral MG 3D screening mammo w/cad, [facility]. Tissue Density: Left: The breasts are heterogeneously dense, which may obscure small masses. Findings: Analyzed By CAD. Upper outer quadrant focal asymmetry disperses on additional views with an appearance unchanged from prior exams. Findings compatible with benign superimposition shadow. Overall Assessment: Benign, BI-RAD 2 Management: Screening Mammogram of both breasts in 1 year. Results were given to the patient verbally at the time of exam. Patient should continue monthly self-breast exams. A clinical breast exam by your physician is recommended on an annual basis. This exam should not preclude additional follow-up of suspicious palpable abnormalities. Note on Swapna scores and lifetime risk: 1. A Swapna score greater than 3% is considered moderate risk. If this is the case, consider specialist referral to assess eligibility for a risk reducing agent. 2. If overall lifetime risk for the development of breast cancer is 20% or higher, the patient may qualify for future screening with alternating mammogram and breast MRI. [facility], , 07/05/2024 10:34 AM. Electronically signed and approved by: Mariola Fabian M.D. Radiologist
== END | disposition home or self-care (01) ==
LOC: RADMAMWWP 10:13
PROVIDERS: ATTEND Family Medicine
DX: R92.8 Other abnormal and inconclusive findings on diagnostic imaging of breast (principal); R92.332 Mammographic heterogeneous density, left breast; Z92.0 Personal history of contraception
CPT/HCPCS: 77061; 77065